=== PATIENT | female | born 1950 | race Caucasian/White ===

== ENCOUNTER 2024-05-31 20:24 | Inpatient (IN) | payer MEDICARE, OTHER, SELFPAY ==
[2024-05-31 16:48] LABS: % Basophils 0.2 % (0-2); % Eosinophils 0.1 % (0-6); % Immature Granulocytes 0.5 % (0-0.5); % Lymphocytes 2.8 % (20.5-51.1); % Neutrophils 90.4 % (42.2-75.2); Absolute Immature Granulocytes 0.1 10^3/uL (0-0.05); Absolute Lymphocytes 0.4 10^3/uL (1.2-3.4); Absolute Monocytes 0.9 10^3/uL (0.1-0.6); Absolute Neutrophils 12.9 10^3/uL (1.4-6.5); Hematocrit 44.7 % (37.0-47.0); Hemoglobin 15.7 g/dL (12.0-16.0); Mean Corp Hgb Conc. 35.1 g/dL (33.0-37.0); Mean Corpuscular Hgb 31.2 pg (27.0-31.0); Mean Corpuscular Volume 88.9 fL (81.0-99.0); Mean Platelet Volume 9.3 fL (7.4-10.4); Nucleated Red Blood Cells % 0 %; Platelet Count 352 10^3/uL (130-400); Red Blood Cell Count 5.03 10^6/uL (4.20-5.40); Red Cell Dist. Width 15.6 % (11.5-14.5); White Blood Cell Count 14.2 10^3/uL (4.8-10.8)
[2024-05-31 17:01] LABS: INR 1.03; PT 13.8 Sec (11.4-14.6)
[2024-05-31 17:05] LABS: ALT (SGPT) 14 U/L (0-35); AST (SGOT) 18 U/L (14-36); Alkaline Phosphatase 93 U/L (38-126); Blood Urea Nitrogen 69 mg/dl (7-17); Carbon Dioxide 21 mmol/L (22-30); Chloride 99 mmol/L (98-107); Glucose 113 mg/dl (70-99); Potassium 4.2 mmol/L (3.5-5.1); Sodium 130 mmol/L (135-145); Total Bilirubin 1.2 mg/dl (0.2-1.3)
[2024-05-31 17:18] LABS: NT-proBNP 851 pg/ml; Troponin I 0.027 ng/ml
--- NOTE | 2024-05-31 18:16 | ED.GENMED ---
History of Present Illness
General
Chief Complaint: Breathing Problem
Time Seen by Provider: 05/31/24 18:05
History of Present Illness
History of Present Illness:
Patient presents to the emergency department with bilateral lower extremity edema and worsening shortness of breath. She reports that this has been ongoing for weeks to months however it has been worsening. She notes that she is unable to walk now
due to the edema in her legs. Also feels that she is more short of breath while ambulating. Fevers or chills. Endorses some difficulty swallowing at times. This has been ongoing for months.
Phy Exam
Physical Exam
Physical Exam:
GENERAL APPEARANCE: NAD, well developed/ well nourished
EYES lids/conjunctiva normal
EARS/NOSE/THROAT Mucous membranes moist, uvula midline without oral pharyngeal erythema, exudate or swelling
HEAD/NECK normocephalic atraumatic, neck is supple.
RESPIRATORY respiratory effort normal, speaks in full sentences, no accessory muscle use. Lungs clear to auscultation without rhonchi, wheezes, rales
CARDIAC tachycardia, regular rhythm, pitting edema to bilateral lower extremities to her hips.
ABDOMINAL Soft, ND/NT. No pulsatile masses on exam, rebound tenderness, Garza sign or pain over Mcburney's point.
MUSCLES/EXTREMITIES No abnormal range of motion, no swelling.
SKIN Warm, pink and dry.
NEUROLOGICAL Speech is clear and appropriate. Normal level of consciousness. 5/5 strength in all extremities.
PSYCH Normal mood and affect. Judgement/competence is appropriate
Scores
Heart Failure Risk
Heart Failure Risk Score: Yes
History of Stroke or TIA: No
History of intubation for respiratory distress: No
Heart rate on ED arrival >/= 110: No
SaO2 <90% on arrival on room air: No
HR >/=110 during 3min walk test (or too ill to perform test): No
ECG has acute ischemic changes: No
Urea >/=12mmol/L (BUN 33.6mg/dL): Yes
Serum CO2>/=35mmol/L: No
Troponin I or T elevated to ND Level (0.4mg/dL): No
NT-proBNP >/=5,000ng/L (5,000pg/ml): No
HF Risk Score: 1
Admission Status: MEDIUM RISK 5.1% Consider observation or discharge to home with homecare & f/u visit to PCP/Mentally Retarded Teacher, or SNF for treatment
Course
Orders/Labs/Results
Orders:
Orders
05/31/24 16:31
EKG [Electrocardiogram (*1)] Urgent
Reason for Study: Shortness of Breath
EKG- Treatment ONCE
CR Chest - 2 Views Urgent
Comment:
Reason For Exam: SOB
05/31/24 16:38
Complete Blood Count/With Diff Urgent
Comprehensive Metabolic Panel Urgent
Pro-BNP [NT-proBNP] Urgent
Prothrombin Time Urgent
Troponin I Urgent
05/31/24 18:24
D-Dimer Urgent
05/31/24 19:03
Furosemide [Lasix] 40 mg IV NOW STA
Abnormal Lab Results
05/31/24 05/31/24
16:38 18:24
WBC 14.2 H 10^3/uL
(4.8-10.8)
MCH 31.2 H pg
(27.0-31.0)
RDW 15.6 H %
(11.5-14.5)
Abs Immat Gran (auto) 0.1 H 10^3/uL
(0-0.05)
Absolute Neuts (auto) 12.9 H 10^3/uL
(1.4-6.5)
Absolute Lymphs (auto) 0.4 L 10^3/uL
(1.2-3.4)
Absolute Monos (auto) 0.9 H 10^3/uL
(0.1-0.6)
Neutrophils % 90.4 H %
(42.2-75.2)
Lymphocytes % 2.8 L %
(20.5-51.1)
D-Dimer 2.87 H ug/mlFEU
(0.00-0.50)
Sodium 130 L mmol/L
(135-145)
Carbon Dioxide 21 L mmol/L
(22-30)
BUN 69 H mg/dl
(7-17)
Creatinine 1.8 H mg/dL
(0.6-1.0)
Glucose 113 H mg/dl
(70-99)
Total Protein 6.0 L g/dl
(6.3-8.2)
Albumin 3.0 L g/dl
(3.5-5.0)
05/31/24 16:38
05/31/24 16:38
Vital Signs
Initial and Last Documented VS:
Initial Vital Signs
Pulse Resp Pulse Ox
102 20 97
05/31/24 18:10 05/31/24 18:10 05/31/24 18:10
Last Documented Vital Signs
Pulse Resp Pulse Ox
100 27 97
05/31/24 18:30 05/31/24 18:30 05/31/24 18:15
*Critical Care Note
Total Time (30-74mins, 75-104mins- exclusive of procedures): Not Applicable
ED Attending Note
ED Attending Note
ED Attending Note:
has diffuse pitting edema of her lower extremities
CXR showing large left sided pleural effusion and small R sided effusion
suspect volume overload as the cause of her dyspnea/effusion
she is saturating well on room air , in no distress
labs showing elevation in creatinine to 1.8 , no priors on file
ddimer was elevated to 2.87 but foregoing CTA given her clinical stability, renal function and more likely alternate diagnosis
given 40mg lasix
will admit to hospitalist for further management
-
Portions of this chart may have been created with voice recognition software.� Occasional wrong word or��sound alike� substitutions may have occurred due to the inherent limitations of voice recognition software.
Discharge Plan
Departure
Referrals:
Santiago Osei MD [Family Provider] -
Interventions
Interventions:
*Risk Screen - Suicide Last Done: 05/31/24 16:30
*General Assessment Last Done: 05/31/24 16:30
*Neglect/Abuse Screening Last Done: 05/31/24 16:30
*ED COVID-19 Vaccine History Last Done: 05/31/24 16:30
ED- Cardiac Assessment Last Done: 05/31/24 17:48
ED- Pulmonary Assessment Last Done: 05/31/24 17:48
Discharge Date and Time
Print Language: LITHUANIAN
[2024-05-31 18:43] LABS: D-Dimer 2.87 ug/mlFEU (0.00-0.50)
[2024-05-31 19:00] VITALS: BP 124/90
--- NOTE | 2024-05-31 19:45 | HPS.HSE ---
Family Physician
-
Family Physician: Santiago Osei
Chief Complaint
-
Shortness of breath
History of Present Illness
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
repeated radiation in 2018/2021 now comes to the emergency department for shortness of breath.
Patient reports shortness of breath for few months now. She also reports about 3 weeks of bilateral lower extremity swelling. She reports dyspnea on exertion. Patient reports that she has had several pound weight loss over several months. She
denies any chest pain. She denies any productive cough. She denies any exertional chest pain. She denies any fevers or chills. She reports very poor appetite. Patient denies a history of smoking. She denies any calf tenderness.
In the emergency department she had a blood pressure [id number] with a pulse of 100 she is satting 97% on room air. ECG is nonischemic with sinus tachycardia and low voltages. Troponin was 0.02, BNP was 850. Chest x-ray shows a moderate right-sided
pleural effusion and possibly a left large pleural effusion but appears to be obscured by augmented breast tissue. D-dimer is elevated at 2.8.
She has a white count of 14, hemoglobin and platelets were normal. Electrolytes notable for a sodium of 130 but otherwise unremarkable. BUN and creatinine elevated at 69 and 1.8 respectively without a prior for comparison.
Medical History
Past Medical History
Past Medical History: Reports Cancer (Left breast cancer status post lumpectomy remotely, recurrence in lymph node status post lymph node dissection and XRT in 2019.) and HTN
Past Surgical History: Reports Other (Lumpectomy, lymph node dissection)
Social History
Tobacco: Non-smoker
Alcohol: Occasional
Drug: None
Family History
Family History: Not pertinent
Allergies / Home Medications
Allergies reflects when Allergies were last updated in [facility].
Home Medications with original date entered in [facility]
Allergy/Medication List:
Allergies
Allergy/AdvReac Type Severity Reaction Status Date / Time
blue dye Allergy Hives Verified 05/31/24 16:28
Penicillins Allergy Unknown Verified 05/31/24 16:28
Home Medications
acetaminophen 325 mg tablet (Tylenol) 650 mg PO Q6HPRN PRN mild pain 05/31/24
calcium carbonate 500 mg PO DAILY 05/31/24
herbal drugs 1 tab PO DAILYPRN PRN constipation 05/31/24
lisinopril 20 mg tablet 20 mg PO DAILY 05/31/24
vitamin A-vitamin C-vit E-min tablet 1 tab PO DAILY 05/31/24
Review of Systems
-
History Source: Patient
Constitutional: Reports Weight Loss and Fatigue
EENT: Reports No Symptoms
Respiratory: Reports Trouble Breathing
Cardiac: Reports No Symptoms
Abdomen/GI: Reports No Symptoms
: Reports No Symptoms
Musculoskeletal: Reports Edema
Skin: Reports No Symptoms
Neurological: Reports No Symptoms
Endocrine: Reports No Symptoms
Hematologic/Lymphatic: Reports No Symptoms
Psych: Reports No Symptoms
Physical Exam
Vital Signs
Vital Signs
Pulse Resp Pulse Ox
100 27 97
05/31/24 18:30 05/31/24 18:30 05/31/24 18:15
Physical Exam
General: Well Developed, Well Nourished, No Apparent Distress and Comfortable
HEENT: NormoCephalic, Anicteric, Moist mucous membranes and Atraumatic
Respiratory: Crackles
Cardiac: S1/S2, Regular Rhythm and Peripheral Edema; No Murmur, Rub, Gallop, Calf Tenderness or JVD
Breast: Other (breast augmentation, )
GI: Soft, Non Tender, Normal Bowel Sounds and Distended
Rectal: Deferred by Provider
Genito-urinary: Deferred by me
Musculoskeletal: No Cyanosis, Edema, Left Lower Extremity and Edema, Right Lower Extremity
Skin: Other (right neck skin calcifications)
Neuro: AO x 3 and Nonfocal/grossly intact
Hematologic/Lymphatic: No Lymphadenopathy
Psych: Calm
Laboratory Results
-
05/31/24 16:38
05/31/24 16:38
Laboratory Results
PT 13.8 Sec (11.4-14.6) 05/31/24 16:38
INR 1.03 05/31/24 16:38
Total Bilirubin 1.2 mg/dl (0.2-1.3) 05/31/24 16:38
AST 18 U/L (14-36) 05/31/24 16:38
ALT 14 U/L (0-35) 05/31/24 16:38
Alkaline Phosphatase 93 U/L (38-126) 05/31/24 16:38
Troponin I 0.027 ng/ml 05/31/24 16:38
Data Reviewed
-
Diagnostic Radiology: Image Personally Visualized and interpreted
Medical Tests (Nuc Med, Echo, EKG etc): Image Personally Visualized and interpreted
Lab Data: Labs Reviewed by me
Old Records: Reviewed
Impression/Plan
-
IMPRESSION:
73 y.o female with h/o breast cancer coming in with subacute and chronic symptoms including weightloss for several months, SOB and dyspnea on exertion for several weeks and new [place] LE edema over the last 3 weeks. No chest pain. Xray shows pleural
effusions of moderate to possibly large size without focal infiltrates. D-dimer is elevated. Trop is negative. ECG with low voltages. No prior h/o CAD, CHF or chemotherapy. She has renal failure with creatinine of 1.8 and BUN of 69. Unclear
duration as no prior labs available. No h/o liver disease and LFTs normal here. She is total body overloaded with source possibly from cardiac etiology vs renal dysfunction. Cannot rule out pericardial effusion as possible etiology at this time
PLAN:
1. SOB and Volume overload - Total body volume overload but dry MM. Diff dgx includes CHF with cardiorenal, pericardial effusion, malignant vs transudative pleural effusion, nephrotic syndrome (less likely in setting of normotension)
- admit to telemetry
- obtain CT a/p without contrast
- obtain u/s of le bilaterally
- no cp, given findings c/w CHF and effusions and poor kidneys, will hold off CT PE despite elevated D-dimer
- attempt gentle diuresis for now, lasix 40 given in ED, she is not on oxygen, will hold off further lasix until viewing CT scan, echo in am
- check orthostatics
- daily weights and i/os
- cardiology consult
2. Pleural effusions - Suspect CHF vs malignant. No signs of active infection. The weight loss, the h/o malignancy raises concern for recurrence
- CT a/p without contrast, if large volume, will consult IR for diagnostic and therapeutic thoracentesis
3. MIKEY - presumed MIKEY, ? cardiorenal vs nephrotic syndrome
- obtain u/a urine lytes and creatinine
- hold lisinopril for now
- attempt diuresis as above
- nephrology consultation
4. Weightloss
- malignancy suspected, depression suspected per history from daughter
- speech/swallow eval
5. Skin findings - hard skin nodules on the neck bilaterally. Non tender. No discharges. Has been present for a long time per patient
- consider outpatient skin biopsy
DVT PPX - heparin sq
Code status - Full code
[2024-05-31 20:00] VITALS: BP 118/90
[2024-05-31] MEDS: LASIX 40 MG IV (20:07)
[2024-05-31 20:36] VITALS: BMI 24.2
[2024-05-31 21:00] VITALS: BP 112/82
[2024-05-31 22:00] VITALS: BP 127/87
--- NOTE | 2024-05-31 22:00 | EDRN ---
Family is asking about update on CT scan results, did speak with the hospitalist since results are back, they will try to get in to speak with family when they can, family is understanding and said they can update them tomorrow as well.
[2024-05-31 22:55] LABS: Urine Albumin 2+ (Neg - Trace); Urine Bilirubin Negative (Negative); Urine Character Slightly Cloudy (Clear); Urine Color Yellow; Urine Glucose Negative (Negative); Urine Ketone Negative (Negative); Urine Leukocyte 3+ (Negative); Urine Nitrite Negative (Negative); Urine Occult Blood 2+ (Negative); Urine Specific Gravity 1.025 (<1.030); Urine Urobilinogen Negative (Neg - 1+)
[2024-05-31 23:00] VITALS: BP 111/82
[2024-05-31 23:04] LABS: Urine Bacteria Few (Negative); Urine White Cell 26-30 /HPF (0-5)
--- NOTE | 2024-05-31 23:07 | EDRN ---
Lights turned down for patient, she is resting at this time, call geovani in reach, daughter went home for the evening
Margarita (daughter) [phone]
[2024-05-31 23:30] LABS: Protein/creatinine Ratio 0.1; Urine Protein 12 mg/dl; Urine Sodium 7 mmol/L (30-90)
[2024-06-01] VITALS (12 sets, daily range): BP systolic 88–126; BP diastolic 60–87; BMI 22.8
--- NOTE | 2024-06-01 00:13 | EDRN ---
Patient complaining of back pain, will medicate per MAR, patients bed is in progress to be cleaned
[2024-06-01] MEDS: TYLENOL 650 MG PO (00:17)
--- NOTE | 2024-06-01 01:00 | PTCARENOTE ---
Received patient from ED via stretcher. Patient pulled over from stretcher to bed with assistance. Oriented patient to room and placed call olivo within reach.
[2024-06-01] MEDS: HEPARIN 5000 UNITS SC ×3 (01:26→16:55)
[2024-06-01] MEDS: ULTRAM 25 MG PO (02:32)
[2024-06-01] MEDS: ZOFRAN 4 MG IV ×2 (08:01→18:06)
[2024-06-01] MEDS: LASIX 40 MG IV (08:02)
--- NOTE | 2024-06-01 08:05 | CON.CAR ---
Addendum entered and electronically signed by Tony Francois MD 06/01/24 10:06:
I saw and examined the patient.
The MILK DELIVERY DRIVER's note was reviewed and I agree with the note.
73-year-old with a pretty history of breast cancer/lumpectomy/radiation therapy hypertension who has had increased shortness of breath for months and also increased lower extremity edema. Patient with extensive bilateral lower extremity edema up
through the thighs and buttocks. CT with bilateral pleural effusions with large left pleural effusion and there is also evidence of ascites. Labs notable for creatinine 1.8. proBNP 851.
Extensive edema, pleural effusions and ascites may be multifactorial. Underlying malignancy is a concern. Based on the above would suggest the following
-Thoracentesis-diagnostic and therapeutic. To be performed toda. Will await results.
-Echocardiogram
-Cautious use of diuretics with close monitoring of renal function
-Renal insufficiency. Evaluation in progress. Monitor with diuretic
-Hyponatremia. Sodium 130-132. Monitor with diuretic
-Elevated D-dimer. CT not performed due to elevated creatinine. Await lower extremity ultrasound
Original Note:
Consultation
Consultation Request
Date/Time Consultation Requested: 06/01/2435
Date/Time Consultation Performed: 06/01/24 0805
Requesting Provider: Dr. Miller
Performing Provider: Carlene KAISER for Dr. Francois
Reason for Consultation: pleural effusion, concern for CHF
Medical History
-
Chief Complaint: SOB, LE edema
History of Present Illness:
73 y/o female with hx breast cancer (s/p left breast lumpectomy and radiation, then later noted in lymph nodes s/p intervention- oncologist Dr. Britni Guerrier, [place]) and hypertension who is here for evaluation of BLE edema x 3 weeks. It became
difficult to ambulate with this. She has also had SOB for months now, which has been progressive. She has not gone to a medical provider for this before now. She thinks she has lost weight and has a poor appetite. No fever or chills. No orthopnea or
PND. She is in no distress at the time of my assessment, but does have increased WOB. She is seen on imaging to have a large left pleural effusion and small-moderate right pleural effusion. She was given of dose of IV diuretic. Renal dysfunction is
noted, and AM labs are pending. She is scheduled for a lung tap. D-dimer is elevated, but no plan for CTPE right now with renal dysfunction per primary team- LE u/s is pending.
Past Medical History
Past Medical History: Cancer and HTN
Social History
Tobacco: Non-Smoker
Alcohol: Former (used to drink ETOH, now doesn't)
Family History
Family History: Other ('heart issues' on mom's side- details unclear)
Allergies / Home Medications
Allergy/AdvReac Type Severity Reaction Status Date / Time
blue dye Allergy Hives Verified 05/31/24 16:28
Penicillins Allergy Unknown Verified 05/31/24 16:28
�Medication �Instructions �Recorded �Confirmed �Type
acetaminophen 325 mg tablet 650 mg PO Q6HPRN PRN mild pain 05/31/24 05/31/24 History
(Tylenol)
calcium carbonate 500 mg PO DAILY Supplement 05/31/24 05/31/24 History
herbal drugs 1 tab PO DAILYPRN PRN constipation 05/31/24 05/31/24 History
lisinopril 20 mg tablet 20 mg PO DAILY Blood Pressure 05/31/24 05/31/24 History
vitamin A-vitamin C-vit E-min 1 tab PO DAILY Supplement 05/31/24 05/31/24 History
tablet
Review of Systems
-
History Source: Patient
All other systems: Negative unless noted
Constitutional: Weight Loss
Respiratory: Trouble Breathing
Musculoskeletal: Edema
Physical Exam
Vital Signs
Temp Pulse Resp BP Pulse Ox
97.7 F 93 18 123/87 97
06/01/24 08:03 06/01/24 08:03 06/01/24 08:03 06/01/24 08:03 06/01/24 08:03
Lab Results
05/31/24 16:38
Troponin I 0.027 ng/ml 05/31/24 16:38
Ydx-R-Lbcptbljgtn Pept 851 pg/ml 05/31/24 16:38
Physical Exam
General: Well Developed, Well Nourished and No Apparent Distress
HEENT: Normocephalic and Anicteric
Respiratory: Other (diminished to bases, faint wheezes scattered t/o, mildly increased WOB)
Cardiac: Regular Rhythm and Peripheral Edema (+1-2 BLE edema)
Musculoskeletal: Edema
Skin: Warm and Dry
Neuro: AO x 3
Psych: Calm
Impression / Plan
-
SOB:
-pleural effusions noted on imaging as detailed below (L > R)
-plan is for diagnostic/therapeutic tap today
-obtain echo
-LE edema noted, anasarca noted on CT scan as below
-we can continue and monitor response to IV diuresis- AM labs pending. This requires intensive monitoring.
-D-dimer is elevated and notes reviewed and CT PE is deferred for now with renal dysfunction- LE u/s is pending. W/u per primary on this.
Hx Breast cancer:
-Chest imaging raises possibility of metastasis- work-up/management per primary team
Abnormal creatinine, hyponatremia:
-unknown baseline
-monitor response to diuresis. AM labs are pending.
-nephrology is consulted
HTN:
-stable
-ACEI held for above
Data:
Chest CT scan without contrast: large left pleural effusion with associated collapse of the left lower lobe and partial collapse of the left upper lobe. There is a small/moderate right-sided pleural effusion with adjacent compressive atelectasis.
Scattered small sclerotic foci involving the thoracic spine and sternum, nonspecific although the setting of malignancy metastasis are possible. Diffuse anasarca. Fractures of the anterior left second, third and fourth ribs which appear subacute.
Data Reviewed
-
EKG: Tracing Personally Visualized and interpreted (ST 104 BPM, low voltage QRS)
Radiology: Report Reviewed by me (CXR: Large left pleural effusion. Small right pleural effusion.)
CT Scan: Report Reviewed by me (As noted)
Medical Tests (Nuc Med, Echo etc): Other (ordered and pending)
Labs: Labs Reviewed by me
[2024-06-01 08:10] LABS: INR 1.01; PT 13.6 Sec (11.4-14.6)
[2024-06-01 08:31] LABS: HDL Cholesterol 72 mg/dl; LDL Cholesterol, Calculated 157 mg/dl; Total Cholesterol 263 mg/dl (50-199); Total Protein 6.1 g/dl (6.3-8.2); Triglyceride 173 mg/dl (10-149); Very Low Density Lipoprotein 34 mg/dl (0-30)
[2024-06-01 09:02] LABS: TSH Reflex To Free T4 2.94 uIU/ml (0.47-4.68)
[2024-06-01 09:19] LABS: Blood Urea Nitrogen 74 mg/dl (7-17); Carbon Dioxide 20 mmol/L (22-30); Chloride 101 mmol/L (98-107); Estimated Creatinine Clearance 23 ml/min; Glucose 100 mg/dl (70-99); LDH 198 U/L (120-246); Magnesium 2.4 mg/dl (1.6-2.3); Potassium 4.3 mmol/L (3.5-5.1); Sodium 132 mmol/L (135-145); eGFR 31.27
--- NOTE | 2024-06-01 11:11 | W.PN.UPDATE ---
Update Note
Progress Note Update
CXR post left thoracentesis shows small ptx. Asymptomatic, states breathing improved. 96% on RA. Likely ex vacuo ptx, will obtain repeat CXR in 2 hrs to assess stability. 1450 cc evacuated.
--- NOTE | 2024-06-01 11:25 | PTCARENOTE ---
This AM pt N/V PRN zofran administered with good response. Report received from [facility], Repeat CXR 1pm- attending notified. Pt going from IR to Echo.
[2024-06-01 11:26] LABS: Body Fluid Mononuclear 86.5 %; Body Fluid Polymorphonuclear 13.5 %; Body Fluid WBC 59 /CUMM
[2024-06-01 11:27] LABS: Body Fluid Second Tech AMA
[2024-06-01 11:30] LABS: Body Fluid Glucose 101 mg/dl; Body Fluid LDH 132 U/L; Body Fluid Protein 3.7 g/dl
--- NOTE | 2024-06-01 12:25 | PTCARENOTE ---
pt hypotensive upon return to her room from [facility] and Echo BP 97/52 although MAP 80 respiration rate 28, PO 96% RA pt states she is SOB although she also adds it is improved. Attending notified
--- NOTE | 2024-06-01 13:38 | W.PN.HOSP.TC ---
Today's Communication/Plan
-
Pending echo
Assessment / Plan
Assessment / Plan
Impression:
Patient is 70 years old with history of breast cancer status post lumpectomy and radiation came to the ER with shortness of breath, bilateral lower extremity edema for last 3 weeks found to have large pleural effusion status post thoracentesis
cardiology consulted, echocardiogram pending.
Assessment/plan
Acute CHF Exacerbation:
Unspecific type, pending echo
Patient presented with shortness of breath and lower extremity
BNP level is elevated at 851
Troponin level is 0.027
Was given IV Lasix 40 mg daily, caution with hypotension
Daily weight.
Strict I's and O's.
Consulted cardiology.
Continue surveillance system monitor
Echo pending.
Bilateral lower extremity ultrasound pending.
Bilateral pleural effusion
CT chest:
There is a large left pleural effusion with associated collapse of the left lower lobe and partial collapse of the left upper lobe. There is a small/moderate right-sided pleural effusion with adjacent compressive atelectasis.
Scattered small sclerotic foci involving the thoracic spine and sternum, nonspecific although the setting of malignancy metastasis are possible.
Diffuse anasarca.
Fractures of the anterior left second, third and fourth ribs which appear subacute
Status post left-sided thoracentesis with removal of 1400 cc.
Fluid studies pending--- history of breast cancer rule out malignant pleural effusion
Small left pneumothorax, follow-up chest x-ray
Postprocedure hypotension
Continue to monitor
Consider midodrine-cannot give IV fluid
Purple discoloration of bilateral
Patient stated that this been there for last 2 days.
Palpable pulses bilaterally.
Continue to monitor
Acute renal failure
Creatinine slightly improved
hold lisinopril for now
Caution with diuresing
consult nephrology
Weight loss
- malignancy suspected, depression suspected per history from daughter
- speech/swallow eval
Skin findings - hard skin nodules on the neck bilaterally. Non tender. No discharges. Has been present for a long time per patient
- consider outpatient skin biopsy
CODE STATUS: Full code
DVT prophylaxis: Heparin
Diet: Cardiac diet
Total time spent on today's encounter was 65 minutes which included time spent in counseling the patient/family regarding diagnosis and treatment plan as listed above, goals of care, and symptom management. Case was discussed with nursing staff,
specialists, and care coordinators/case management. All labs and imaging personally reviewed by me. Remainder the time spent in detailed review of previous records, lab data, imaging, and other medical provider documentation.
Anticipated Discharge: > 48 hours
Subjective/Interval History
-
Date of Service: June 01, 2024
Patient seen and examined at bedside, patient came back from left-sided thoracentesis with removal of 1400 cc.
Noted to have small pneumothorax, repeat chest x-ray pending.
Overall breathing improved but patient feeling tired and noted to have purplish discoloration in bilateral hands, blood pressure was low.
Objective Data
-
Labs:
Laboratory Results
06/01/24 06/01/24
06:56 08:48
PT 13.6
INR 1.01
Sodium Cancelled 132 L
Potassium Cancelled 4.3
Chloride Cancelled 101
Carbon Dioxide Cancelled 20 L
BUN Cancelled 74 H
Creatinine Cancelled 1.7 H
Glucose Cancelled 100 H
Calcium Cancelled 9.0
Vital Signs:
Vital Signs
Temp Pulse Resp BP Pulse Ox
97.6 F 103 18 97/71 94
06/01/24 11:56 06/01/24 11:56 06/01/24 11:56 06/01/24 11:56 06/01/24 11:56
I&O
05/31/24 06/01/24 06/02/24
06:59 06:59 06:59
Output Total 50 / 50
Balance -50 / -50
Physical Exam
-
General: Respiratory Distress and Appears in Distress
HEENT: Normocephalic, Atraumatic, Moist Mucous Membranes, No Ptosis, PERRLA and Nose Appears Normal
Respiratory: Rales, Rhonchi, Crackles and Accessory Resp Muscle Use
Cardiac: Regular Rhythm, S1/S2 and Tachycardic
Breast: Deferred by me
GI: Soft, Nontender, Nondistended and Normal Bowel Sounds
Genito-urinary: No Costovertebral Tender
Musculoskeletal: Edema, Right Lower Extrem and Edema, Left Lower Extrem
Skin: Other (Bilateral hands purplish discoloration)
Neuro: Awake, Alert, Oriented, AO x 3 and No Motor Deficits
Psych: Calm
Data Reviewed
-
Diagnostic Radiology: Image personally visualized and interpreted and Report Reviewed by me
CT Scan: Image personally visualized and interpreted and Report Reviewed by me
Ultrasound: Image personally visualized and interpreted and Report Reviewed by me
MRI: Image personally visualized and interpreted and Report Reviewed by me
Medical Tests (Nuc Med, Echo etc): Image personally visualized and interpreted and Report Reviewed by me
Labs: Labs Reviewed by me
Old Records: Reviewed
--- NOTE | 2024-06-01 13:45 | CM ---
Met with patient to obtain information for assessment. Patient stated that she is living alone in a bi-level home with one step to enter through the garage. She described herself as in need of assistance with bathing, dressing, personal care and all
ADLs. Patient stated that she has a very good friend who lives two minutes away and is available to support her in any way. She does not drive however, her neighbor and neighbor's daughter have committed to taking her to all of her appointments. She
grocery shops on line using [employer]. She uses a walker for long distances and a cane for shorter household distances.
Patient stated that she has never been to a SNF nor has she had VN services in the past.
Patient's PCP is, Santiago Osei.
Patient stated that she will remain agreeable to what is indicted for her prior to discharge, including SNF. She stated that it has been difficult for her to ambulate due to her edema.
Plan: Case management will continue to follow and assist with discharge planning. Home with services vrs SNF.
--- NOTE | 2024-06-01 13:52 | W.CON.NEPH ---
Consultation
-
Date/Time Consultation Requested: 06/01/24 0036
Date/Time Consultation Performed: 06/01/24 1415
Requesting Provider: Ruth Miller MD
Performing Provider: Melissa Narvaez
Reason for Consultation: MIKEY
Medical History
-
Chief Complaint: sob
History of Present Illness:
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
dissection and repeated radiation in now comes to the emergency department for shortness of breath.
Reportedly symptoms present for few months and LE edema for 2-3weeks, CASTRO for several months. She has poor appetite and lost several pounds of wt in several months. In ER Chest x-ray shows a moderate right-sided pleural effusion and possibly a left
large pleural effusion, CT chest with out contrast shows large left pleural effusion with collapse of LLL, small to mod right pleural effusion with atelectasis and Diffuse anasarca.. WBC 14.2 D-dimer is elevated at 2.8.. BNP 850. Cr noted at 1.8,
BUN 69, sodium 130 with no baseline hence nephrology consulted to eval MIKEY. She did not have any labs in recent years. She received lasix for CHF and cr today at 1.7, sodium 132, BUN 74.
She denies any cough. She denies any chest pain. She denies any fevers or chills. Feels very tired and can not talk for longtime with SOB. SHe underwent left Thoracentesis of 1.4lit today, has mild penumothx following. Denies any dysuria. C/o
abdominal distension. No NSAIDs use. She has occasional dizziness but did not check BPs at home.
Past Medical History
HTN, Left breast cancer status post lumpectomy remotely, recurrence in lymph node status post lymph node dissection and XRT in 2019.
Past Surgical History: Other (Lumpectomy, lymph node dissection)
Social History
Tobacco: Non-Smoker
Alcohol: Occasional
Drug: None
Family History
Family History: Not Pertinent
Allergies / Home Medications
Allergy/AdvReac Type Severity Reaction Status Date / Time
blue dye Allergy Hives Verified 05/31/24 16:28
Penicillins Allergy Unknown Verified 05/31/24 16:28
�Medication �Instructions �Recorded �Confirmed �Type
acetaminophen 325 mg tablet 650 mg PO Q6HPRN PRN mild pain 05/31/24 05/31/24 History
(Tylenol)
calcium carbonate 500 mg PO DAILY Supplement 05/31/24 05/31/24 History
herbal drugs 1 tab PO DAILYPRN PRN constipation 05/31/24 05/31/24 History
lisinopril 20 mg tablet 20 mg PO DAILY Blood Pressure 05/31/24 05/31/24 History
vitamin A-vitamin C-vit E-min 1 tab PO DAILY Supplement 05/31/24 05/31/24 History
tablet
Physical Exam
Vital Signs
Vital Signs
Temp Pulse Resp BP Pulse Ox
97.6 F 100 26 101/61 94
06/01/24 11:56 06/01/24 13:47 06/01/24 13:47 06/01/24 13:47 06/01/24 13:47
Lab Results
WBC 14.2 10^3/uL (4.8-10.8) H 05/31/24 16:38
RBC 5.03 10^6/uL (4.20-5.40) 05/31/24 16:38
Hgb 15.7 g/dL (12.0-16.0) 05/31/24 16:38
Hct 44.7 % (37.0-47.0) 05/31/24 16:38
Plt Count 352 10^3/uL (130-400) 05/31/24 16:38
Sodium 132 mmol/L (135-145) L 06/01/24 08:48
Potassium 4.3 mmol/L (3.5-5.1) 06/01/24 08:48
Chloride 101 mmol/L (98-107) 06/01/24 08:48
Carbon Dioxide 20 mmol/L (22-30) L 06/01/24 08:48
BUN 74 mg/dl (7-17) H 06/01/24 08:48
Creatinine 1.7 mg/dL (0.6-1.0) H 06/01/24 08:48
eGFR 31.27 06/01/24 08:48
Glucose 100 mg/dl (70-99) H 06/01/24 08:48
Calcium 9.0 mg/dl (8.4-10.2) 06/01/24 08:48
Ley-I-Zfpsnfflldp Pept 851 pg/ml 05/31/24 16:38
Albumin 3.0 g/dl (3.5-5.0) L 05/31/24 16:38
Physical Exam
General: Awake, Alert, Oriented, AOx3 and No Distress
HEENT: EOMI, Anicteric, Conjunctivae Clear and Neck Supple
Respiratory: Normal Excursion, Nonlabored Respirations and Other (decreased BS)
Cardiac: S1/S2 and Regular Rate/Rhythm
Breast: Deferred by me
Abdomen: Soft, Nontender and Other (mild distended)
Musculoskeletal: No Cyanosis and Edema (2+)
Skin: No Rash and Warm
Neuro: Nonfocal/Grossly Intact
Psych: Appropriate
Assessment/Plan
-
IMP:
SOB and Volume overload
BIlat pleural effusion left >right
s/p Thoracentesis 1.45lit and mild pneumothx post
MIKEY
Weightloss
elevated LFTs
Skin findings - hard skin nodules on the neck bilaterally.
Plan:
A/w SOB, noted anasarca and bilat pleural effusion
MIKEY-no baseline cr available
UA ?UTI sample, U na low 7-suggest cardiorenal/prerenal
monitor UOP , ?oliguric
U PCR only 100mg/gm of cr unlikely nephrotic , check renal US
pending echo
cont diuresis, check bladder scan
BP soft end with out anti HTN meds
mild hyponatremia likely from hypervolemia-maintain FR
monitor met acidosis
labs in am
d/w pt and primary
--- NOTE | 2024-06-01 18:16 | PTCARENOTE ---
Reviewed, along with BP and updates for family with attending.low urine output, bladder scan PVR 26
[2024-06-02] VITALS (7 sets, daily range): BP systolic 95–130; BP diastolic 58–72; PULSE 105–109; BMI 22.8
[2024-06-02] MEDS: HEPARIN 5000 UNITS SC ×2 (01:06→10:15)
[2024-06-02] MEDS: MELATONIN 5 MG PO (01:07)
[2024-06-02 09:05] LABS: Blood Urea Nitrogen 79 mg/dl (7-17); Carbon Dioxide 18 mmol/L (22-30); Chloride 101 mmol/L (98-107); Estimated Creatinine Clearance 18 ml/min; Glucose 117 mg/dl (70-99); Potassium 4.8 mmol/L (3.5-5.1); Sodium 131 mmol/L (135-145); eGFR 22.95
--- NOTE | 2024-06-02 09:15 | PN.CDI ---
CDI
- -
CDI:
Physician Documentation Request
Admit Date: 05/31/24 20:24
Dear Doctor Dahiana,
Patient admitted with acute CHF exacerbation.
06/01 Nutrition note, 'Upper body remains very thin in appearance with severe loss tricep subcutaneous fat and severe loss clavicle, pectoralis muscle. In combination with prolonged poor intake prior to hospital admit <75% x 1 month, pt meets
criteria for severe protein calorie malnutrition of chronic illness.'
Please provide in your note the diagnosis associated with the nutrition findings and your assessment:
Severe protein calorie malnutrition of chronic illness
Other (please specify)
[place] Criteria ([facility] Hospitalist 2017)
2 or more criteria must be present for either
non severe or severe malnutrition
Note that the criteria differs related to the
presence of an acute or chronic illness
Chronic Illness
Energy Intake Non Severe: <75% for >1 month
Severe: <75% for >1 month
Weight Loss Non Severe: 5% over 1 month
7.5% over 3 months
10% over 6 months
20% over 1 year
Severe: >5% over 1 month
>7.5% over 3 months
>10% over 6 months
>20% over 1 year
Body Fat Non Severe: Mild Loss
Severe: Severe Loss
Muscle Mass Non Severe: Mild Loss
Severe: Severe Loss
Fluid Accumulation Non Severe: Mild Accumulation
Severe: Moderate to severe
accumulation
Reduced Is/It Project Manager Strength Non Severe: N/A
Severe: Measurably reduced
Use of terms such as suspected, likely, concern for, or probable (associated with a specific diagnosis that is being evaluated, monitored, or treated as if it exists) are acceptable and can be coded in the inpatient setting, when documented at the
time of discharge.
Thank you,
Aubree LOPEZ,RN,CCDS
CDI Specialist
Available via tiger text
Please use your independent medical judgment in providing your response.
--- NOTE | 2024-06-02 09:15 | W.PN.CD ---
Today's Communication / Plan
-
IV diuresis
Consider nephrology consult given worsening Cr and anasarca
Impression / Plan
-
LE edema anasarca
- Echo below but normal EF
- with worsening Cr would consider nephro consult
- Cont IV lasix
SOB s/p throacentesis:
-pleural effusions noted on imaging as detailed below (L > R) s/p thora 1.5 L removed
- has not improved SOB at this point
Hx Breast cancer:
-Chest imaging raises possibility of metastasis- work-up/management per primary team
Abnormal creatinine, hyponatremia:
-unknown baseline
-monitor response to diuresis. AM labs are pending.
-nephrology is consulted
HTN:
-stable
-ACEI held for above
Data:
Chest CT scan without contrast: large left pleural effusion with associated collapse of the left lower lobe and partial collapse of the left upper lobe. There is a small/moderate right-sided pleural effusion with adjacent compressive atelectasis.
Scattered small sclerotic foci involving the thoracic spine and sternum, nonspecific although the setting of malignancy metastasis are possible. Diffuse anasarca. Fractures of the anterior left second, third and fourth ribs which appear subacute.
Subjective: JAVY patient remains SOB
Echo June 01 2024: CONCLUSIONS
Very limited study.
Left ventricular ejection fraction is 60-65%, by visual assessment.
Normal right ventricular size and function.
Small to moderate anterior pericardial effusion without evidence of hemodynamic
compromise.
No prior study available for comparison.
Physical Exam
Vital Signs/Labs
Vital Signs
Temp Pulse Resp BP Pulse Ox
98.0 F 112 18 108/67 96
06/02/24 03:00 06/02/24 03:00 06/02/24 03:00 06/02/24 03:00 06/02/24 03:00
06/01/24 06/02/24 06/03/24
06:59 06:59 06:59
Actual Weight 124 lb 8 oz 124 lb 9 oz
06/02/24 08:05
PT 13.6 Sec (11.4-14.6) 06/01/24 06:56
INR 1.01 06/01/24 06:56
Magnesium 2.4 mg/dl (1.6-2.3) H 06/01/24 08:48
Triglycerides 173 mg/dl (10-149) H 06/01/24 06:56
LDL Cholesterol, Calc 157 mg/dl 06/01/24 06:56
VLDL Cholesterol, Calc 34 mg/dl (0-30) H 06/01/24 06:56
HDL Cholesterol 72 mg/dl 06/01/24 06:56
05/31/24
16:38
Wmn-Q-Yrahjjcxcjy Pept 851
LAB Results
05/31/24
16:38
Troponin I 0.027
Physical Exam
Constitutional: No acute distress
EENT: Anicteric
Cardiovascular: Rhythm & rate is regular and Pedal edema present
Respiratory: Respiratory effort normal and Other (decreased at b/l bases )
GI: Soft
Neuro/Psych: AO x 3
Data Reviewed
-
Date of Service: June 02, 2024
EKG: Tracing Personally Visualized and interpreted (sr)
Echo: Report Reviewed by me
Labs: Labs Reviewed by me
[2024-06-02 09:20] LABS: Hematocrit 44.5 % (37.0-47.0); Mean Corpuscular Hgb 31.6 pg (27.0-31.0); Mean Corpuscular Volume 87.8 fL (81.0-99.0); Mean Platelet Volume 11.1 fL (7.4-10.4); Platelet Count 229 10^3/uL (130-400); Red Blood Cell Count 5.07 10^6/uL (4.20-5.40); Red Cell Dist. Width 16.1 % (11.5-14.5); White Blood Cell Count 11.1 10^3/uL (4.8-10.8)
--- NOTE | 2024-06-02 09:27 | PN.CDI ---
CDI
- -
CDI:
Physician Documentation Request
Admit Date: 05/31/24 20:24
Dear Doctor Dahiana,
Patient admitted with acute CHF exacerbation.
Na levels documented below:
Laboratory Tests
05/31/24 06/01/24 06/02/24
16:38 08:48 08:05
Sodium 130 L 132 L 131 L
Based on the above, please clarify in the progress notes, the appropriate diagnosis, if significant, that supports the above abnormalities and additional evaluation, monitoring and/or treatment rendered:
Hyponatremia
Insignificant abnormal lab findings
Other
Use of terms such as suspected, likely, concern for, or probable (associated with a specific diagnosis that is being evaluated, monitored, or treated as if it exists) are acceptable and can be coded in the inpatient setting, when documented at the
time of discharge.
Thank you,
Aubree LOPEZ,RN,CCDS
CDI Specialist
Available via [place] text
Please use your independent medical judgment in providing your response.
[2024-06-02] MEDS: FLUSH (NSS) 1 FLUSH IV ×6 (10:16→16:27)
[2024-06-02] MEDS: LASIX 40 MG IV (10:16)
--- NOTE | 2024-06-02 10:29 | W.PN.NEPH.PH ---
Today's Communication / Plan
-
see plan
Assessment/Plan
-
IMP:
SOB and Volume overload
BIlat pleural effusion left >right
s/p Thoracentesis 1.45lit and mild pneumothx post
MIKEY
Weightloss
elevated LFTs
Skin findings - hard skin nodules on the neck bilaterally.
Scattered small sclerotic foci involving the thoracic spine and sternum, nonspecific although the setting of malignancy metastasis are possible on CT.
Plan:
A/w SOB, noted anasarca and bilat pleural effusion
MIKEY-no baseline cr available , cr cont to increase to 2.2
incontinent of urine and bladder scan 26cc, low threshold for wood
UA -UTI sample, U na low 7-suggest cardiorenal/prerenal
U PCR only 100mg/gm of cr unlikely nephrotic , await renal US
echo normal EF but small to mod pericardial effusion
hold diuretic since cr increasing
BP soft end with out meds
mild hyponatremia likely from hypervolemia-maintain FR
monitor met acidosis, avoiding bicarb to decrease salt load
CXR noted left penumothx post procedure 06/01
suspect bone mets-Onc consulted, pleural fluid cytology pending
labs in am
d/w pt , cards , nursing and primary
high risk of further MIKEY
1430:
Renal US shows possible hydro, will check CT abd and consult
small bilat kidneys too may suggest CKD underlying
-
-
Date of Service: June 02, 2024
CC / HPI / ROS
-
Chief Complaint:
MIKEY
History of Present Illness:
cr up at 2.2, na low at 131
UOP not recorded-incontinent
BP soft
WBC decreasing to 11k
Review of Systems:
still sob, FTT
poor po intake
no pain
nodular rash on ant chest
Labs
-
Labs:
WBC 11.1 10^3/uL (4.8-10.8) H 06/02/24 08:05
RBC 5.07 10^6/uL (4.20-5.40) 06/02/24 08:05
Hgb 16.0 g/dL (12.0-16.0) 06/02/24 08:05
Hct 44.5 % (37.0-47.0) 06/02/24 08:05
Plt Count 229 10^3/uL (130-400) D 06/02/24 08:05
Sodium 131 mmol/L (135-145) L 06/02/24 08:05
Potassium 4.8 mmol/L (3.5-5.1) 06/02/24 08:05
Chloride 101 mmol/L (98-107) 06/02/24 08:05
Carbon Dioxide 18 mmol/L (22-30) L 06/02/24 08:05
BUN 79 mg/dl (7-17) H 06/02/24 08:05
Creatinine 2.2 mg/dL (0.6-1.0) H 06/02/24 08:05
eGFR 22.95 06/02/24 08:05
Glucose 117 mg/dl (70-99) H 06/02/24 08:05
Calcium 9.0 mg/dl (8.4-10.2) 06/02/24 08:05
Qef-Q-Tscaryfipzf Pept 851 pg/ml 05/31/24 16:38
Albumin 3.0 g/dl (3.5-5.0) L 05/31/24 16:38
Physical Exam
-
Vital Signs:
Vital Signs
Temp Pulse Resp BP Pulse Ox
97.3 F 100 18 106/67 96
06/02/24 11:05 06/02/24 11:05 06/02/24 11:05 06/02/24 11:06/02/24 12:04
Cardiovascular:: Regular rate and rhythm
Respiratory:: Bilateral: Coarse
Lung Excursion:: Abnormal
Abdomen:: Nontender and Soft
Extremity Edema:: +2: Bilateral:
Wood Catheter: No
[2024-06-02 11:27] LABS: Lactic Acid 1.5 mmol/L (0.7-2.0)
[2024-06-02] MEDS: STERILE WATER FOR INJECTION 10 ML IV (11:43)
[2024-06-02] MEDS: ROCEPHIN 1000 MG IV (11:43)
[2024-06-02 12:09] LABS: Glucose - Point of Care 106 mg/dl (70-99)
--- NOTE | 2024-06-02 13:23 | W.PN.HOSP.TC ---
Addendum entered and electronically signed by Earnestine Talbot MD 06/02/24 14:25:
Hyponatremia
Severe protein calorie malnutrition of chronic illness
Original Note:
Today's Communication/Plan
-
Oncology consult
Assessment / Plan
Assessment / Plan
Impression:
Patient is 70 years old with history of breast cancer status post lumpectomy and radiation came to the ER with shortness of breath, bilateral lower extremity edema for last 3 weeks found to have large pleural effusion status post thoracentesis
cardiology consulted, echocardiogram shows:
Very limited study.
Left ventricular ejection fraction is 60-65%, by visual assessment.
Normal right ventricular size and function.
Small to moderate anterior pericardial effusion without evidence of hemodynamic
compromise.
Repeat chest x-ray today done shows
1. LARGE LEFT HYDROPNEUMOTHORAX involving 50% of the lung volume.
2. Severe left lower lobe airspace consolidation.
3. Moderate-sized right pleural effusion.
4. MULTIFOCAL BLASTIC OSSEOUS METASTATIC DISEASE.
5. Severe pectus excavatum deformity.
Assessment/plan
Acute CHF Exacerbation:
Acute diastolic CHF, no history of congestive heart failure
Patient presented with shortness of breath and lower extremity
BNP level is elevated at 851
Troponin level is 0.027
Was given IV Lasix 40 mg daily, caution with hypotension
Daily weight.
Strict I's and O's.
Consulted cardiology.
Continue air sampling and monitoring
06/02
echocardiogram shows:
Very limited study.
Left ventricular ejection fraction is 60-65%, by visual assessment.
Normal right ventricular size and function.
Small to moderate anterior pericardial effusion without evidence of hemodynamic
compromise.
Bilateral lower extremity ultrasound pending.
Hold Lasix for now with worsening.
Bilateral pleural effusion
CT chest:
There is a large left pleural effusion with associated collapse of the left lower lobe and partial collapse of the left upper lobe. There is a small/moderate right-sided pleural effusion with adjacent compressive atelectasis.
Scattered small sclerotic foci involving the thoracic spine and sternum, nonspecific although the setting of malignancy metastasis are possible.
Diffuse anasarca.
Fractures of the anterior left second, third and fourth ribs which appear subacute
Status post left-sided thoracentesis with removal of 1400 cc.
Fluid studies pending--- history of breast cancer rule out malignant pleural effusion
Small left pneumothorax, follow-up chest x-ray
06/02
Repeat chest x-ray today done shows
1. LARGE LEFT HYDROPNEUMOTHORAX involving 50% of the lung volume.
2. Severe left lower lobe airspace consolidation.
3. Moderate-sized right pleural effusion.
4. MULTIFOCAL BLASTIC OSSEOUS METASTATIC DISEASE.
5. Severe pectus excavatum deformity.
Discussed with daughter at bedside, will get oncology consult.
Concern for metastatic disease
CT chest, x-ray chest shows concern for metastatic disease.
Pending pleural fluid cytology
Will obtain oncology,
Postprocedure hypotension
Continue to monitor
Consider midodrine-cannot give IV fluid
Purple discoloration of bilateral
Patient stated that this been there for last 2 days.
Palpable pulses bilaterally.
Continue to monitor
Pending arterial studies
Acute renal failure
Creatinine slightly improved
hold lisinopril for now
Caution with diuresing
consult nephrology
06/02
Hold Lasix
Weight loss
- malignancy suspected, depression suspected per history from daughter
- Added ensure
Skin findings - hard skin nodules on the neck bilaterally. Non tender. No discharges. Has been present for a long time per patient
- consider outpatient skin biopsy
CODE STATUS: Full code
DVT prophylaxis: Heparin
Diet: Cardiac diet
Family communication: Discussed with daughter Margarita at bedside
Total time spent on today's encounter was 65 minutes which included time spent in counseling the patient/family regarding diagnosis and treatment plan as listed above, goals of care, and symptom management. Case was discussed with nursing staff,
specialists, and care coordinators/case management. All labs and imaging personally reviewed by me. Remainder the time spent in detailed review of previous records, lab data, imaging, and other medical provider documentation.
Anticipated Discharge: > 48 hours
Subjective/Interval History
-
Date of Service: June 02, 2024
Patient still with shortness of breath.
Repeat chest x-ray today done shows
1. LARGE LEFT HYDROPNEUMOTHORAX involving 50% of the lung volume.
2. Severe left lower lobe airspace consolidation.
3. Moderate-sized right pleural effusion.
4. MULTIFOCAL BLASTIC OSSEOUS METASTATIC DISEASE.
5. Severe pectus excavatum deformity.
Started on IV antibiotics
Objective Data
-
Labs:
Laboratory Results
06/02/24
08:05
WBC 11.1 H
Hgb 16.0
Hct 44.5
Plt Count 229 D
Sodium 131 L
Potassium 4.8
Chloride 101
Carbon Dioxide 18 L
BUN 79 H
Creatinine 2.2 H
Glucose 117 H
Calcium 9.0
Vital Signs:
Vital Signs
Temp Pulse Resp BP Pulse Ox
97.3 F 100 18 106/67 96
06/02/24 11:05 06/02/24 11:05 06/02/24 11:05 06/02/24 11:05 06/02/24 12:04
I&O
06/01/24 06/02/24 06/03/24
06:59 06:59 06:59
Intake Total 240 / 240
Output Total 50 / 50
Balance -50 / -50 240 / 240
Physical Exam
-
General: Respiratory Distress and Appears in Distress
HEENT: Normocephalic, Atraumatic, Moist Mucous Membranes, No Ptosis, PERRLA and Nose Appears Normal
Respiratory: Rales, Rhonchi, Crackles and Accessory Resp Muscle Use
Cardiac: Regular Rhythm, S1/S2 and Tachycardic
Breast: Deferred by me
GI: Soft, Nontender, Nondistended and Normal Bowel Sounds
Genito-urinary: No Costovertebral Tender
Musculoskeletal: Edema, Right Lower Extrem and Edema, Left Lower Extrem
Skin: Other (Bilateral hands purplish discoloration)
Neuro: Awake, Alert, Oriented, AO x 3 and No Motor Deficits
Psych: Calm
Data Reviewed
-
Diagnostic Radiology: Image personally visualized and interpreted and Report Reviewed by me
CT Scan: Image personally visualized and interpreted and Report Reviewed by me
Ultrasound: Image personally visualized and interpreted and Report Reviewed by me
MRI: Image personally visualized and interpreted and Report Reviewed by me
Medical Tests (Nuc Med, Echo etc): Image personally visualized and interpreted and Report Reviewed by me
Labs: Labs Reviewed by me
Old Records: Reviewed
--- NOTE | 2024-06-02 14:20 | CON.ONC ---
Impression
Impression
73 year old female
H/o Breast Cancer s/p lumpectomy
H/o breast cancer recurrence in L sided nodes s/p resection
Bilateral Pleural Effusions
Bilateral Lower Extremity Pitting Edema
Hematemesis
Plan
Plan
- S/p Thoracentesis, fluid sent for cytology, will follow for results, vital signs stable
- Suspicion for metastatic disease given NEW sclerotic and blastic lesions on the spine with history of breast cancer w/ previous recurrence s/p lymph node resection. Mammograms thus far are reportedly wnl, though prior genetic testing, surgical
pathology reports unavailable at this time.
- Uncertain until pathology results come back from pleural fluid. If malignant, can pursue further testing to evaluate Estrogen receptor sensitivity and possible hormonal medications if she is amenable, though she does not seem keen on chemotherapy
- Would agree with obtaining further CT imaging of the abdomen and pelvis, especially given new onset of hematemesis and worsening renal function/findings of hydronephrosis without other explanation
Patient History
History of Present Illness
73 year old female with a past medical history of breast cancer s/p lumpectomy, hypertension, depression who presented with progressive BL LE edema, worsening shortness of breath, with intermittent dysphagia, decrease in appetite and weight loss.
She denies any fevers, chills. She endorses chronic back pain which has worsened with her immobility due to shortness of breath on exertion. She also, after speaking daughter, endorsed a history of fall x1 week ago which she says is due to muscular
weakness in the LE. She did not report any LOC, palpitations, chest pain during the fall. She did not hit her head.
She was diagnosed with breast cancer in 2011 and treated at [facility] with Lumpectomy and local radiation as she did not want chemotherapy. She was put on estrogen receptor antagonists (of which she and her daughter are not sure of the name). She was
followed at [facility] for a time and in 2018 there was a recurrence on her lymph nodes on the L side which were also treated with surgery and radiation, no chemo. Of note, in 2013 she developed severe depression after the of her and her
follow up with doctors was intermittent at best. She finished radiation for her recurrence in 2019 during which time she moved to this area. The daughter explains that she never followed up with Oncology in this area like she was asked to and did
not want to drive down to [place]. She did, for a time, receive 6 month follow up imaging and then continued to receive yearly mammograms which did not show any recurrence or new masses. However, despite this imaging, she never followed up in office
with an oncologist or her PCP.
CT scan imaging of her chest showed large left pleural effusion with associated collapse of the LLL and partial collapse of the CHARITO w/ small R sided pleural effusion/atelectasis. 1450ccs of fluid were drained and sent for analysis, concern for
malignant effusion. LE venous doppler ruled out venous thrombosis. Renal US demonstrated MODERATE ASYMMETRIC DISTENTION of the RIGHT INTRARENAL COLLECTING SYSTEM suggesting MODERATE RIGHT HYDRONEPHROSIS secondary to a right ureteral obstruction, w/o
sonographic evidence for R intrarenal calculus.
While speaking with the patient she became upset with discussions of her prior cancer and began to feel nauseous. She reached for a bed gandara and vomited approx. 200-300ml of foul smelling, maroon colored liquid. She said this was new and had never
happened to her before.
Past-Medical/Surgical History
Past Medical History: Breast cancer s/p lumpectomy and radiation, hypertension, depression
Past Surgical History: Lumpectomy Left lymph node resection 2019 (chart says 2021, daughter confirmed resection was in 2019, though I believe this was done at [facility])
Patient Medication
�Medication �Instructions �Recorded �Confirmed �Last Taken �Type
acetaminophen 325 mg tablet 650 mg PO Q6HPRN PRN mild pain 05/31/24 05/31/24 05/30/24 History
(Tylenol)
calcium carbonate 500 mg PO DAILY Supplement 05/31/24 05/31/24 05/30/24 History
herbal drugs 1 tab PO DAILYPRN PRN constipation 05/31/24 05/31/24 Unknown History
lisinopril 20 mg tablet 20 mg PO DAILY Blood Pressure 05/31/24 05/31/24 05/30/24 History
vitamin A-vitamin C-vit E-min 1 tab PO DAILY Supplement 05/31/24 05/31/24 05/30/24 History
tablet
Active Medications
Generic Name Dose Route Start Last Admin
Trade Name Freq PRN Reason Stop Dose Admin
Acetaminophen 650 mg 06/01/24 00:12 06/01/24 00:17
Acetaminophen 325 Mg Tablet PO 06/29/24 00:11 650 mg
Q6HPRN PRN Administration
mild pain
Ceftriaxone Sodium 1,000 mg 06/02/24 12:00 06/02/24 11:43
Ceftriaxone 1000 Mg / 10 Ml Vial IV 1,000 mg
Q24H RAMONA Administration
Furosemide 40 mg 06/01/24 08:00 06/02/24 10:16
Furosemide 40 Mg (10 Mg/Ml) 4 Ml Vial IV 06/29/24 07:59 40 mg
DAILY RAMONA Administration
Heparin Sodium 5,000 units 06/01/24 00:36 06/02/24 10:15
Heparin 5,000 Units/Ml 1 Ml Vial SC 06/29/24 00:35 5,000 units
Q8 RAMONA Administration
Azithromycin 500 mg in 250 mls @ 250 mls/hr 06/02/24 11:00
Zithromax Infusion IV
Q24H RAMONA
Ondansetron HCl 4 mg 06/01/24 07:56 06/01/24 18:06
Ondansetron 4 Mg/2 Ml Vial IV 06/29/24 07:55 4 mg
Q6HPRN PRN Administration
NAUSEA/VOMITING
Sodium Chloride 0 flush 05/31/24 22:00 06/02/24 11:43
Sodium Chloride 0.9% (Flush) Syringe IV 06/28/24 21:59 1 flush
PER PROTOCOL RAMONA Administration
Sterile Water 10 ml 06/02/24 12:00 06/02/24 11:43
Sterile Water For Injection 10 Ml Vial IV 06/30/24 11:59 10 ml
Q24H RAMONA Administration
Review of Systems
-
History Source: Patient and Family
Constitutional: Reports Weight Loss, No Appetite and Fatigue; Denies Fever, Night Sweats or Chills
EENT: Reports No Symptoms
Respiratory: Reports Trouble Breathing; Denies Cough, Hemoptysis or Wheezing
Cardiac: Denies Chest Pain, Diaphoresis, Palpitations or Syncope
GI: Reports Nausea, Vomiting and Hemetemesis; Denies Abdominal Pain, Diarrhea or Constipated
Breast: Reports No Symptoms
: Reports No Symptoms
Musculoskeletal: Reports No Symptoms
Skin: Denies Itching or Rash
Neuro: Denies Weakness, Numbness or Lightheadedness
Endocrine: Reports No Symptoms
Hematologic/Lymphatic: Denies Swollen Glands or Bruising
Allergy / Immunology: Reports No Symptoms
Psych: Reports No Symptoms
Physical Exam
-
General: Well Developed and Well Nourished
HEENT: Moist Mucous Membranes; Negative Jaundice
Cardiology: Normal Sinus Rhythm, S1 and S2; Negative Murmur
GI: Soft, Normal Bowel Sounds and Other (Hematemesis/Maroon colored vomitus, multiple episodes 200-300mls)
Musculoskeletal: No Clubbing, No Cyanosis, Edema, Right Lower Extrem (3+ pitting) and Edema, Left Lower Extrem (3+ pitting)
Neurology: No Word Finding Difficulty
Skin: Warm, Dry and IV Access / Catheter Site
Hematologic / Lymphatic: No Petechiae
Psych: Depressed
Labs
Lab Results
WBC 11.1 10^3/uL (4.8-10.8) H 06/02/24 08:05
RBC 5.07 10^6/uL (4.20-5.40) 06/02/24 08:05
Hgb 16.0 g/dL (12.0-16.0) 06/02/24 08:05
Hct 44.5 % (37.0-47.0) 06/02/24 08:05
MCV 87.8 fL (81.0-99.0) 06/02/24 08:05
MCH 31.6 pg (27.0-31.0) H 06/02/24 08:05
MCHC 36.0 g/dL (33.0-37.0) 06/02/24 08:05
RDW 16.1 % (11.5-14.5) H 06/02/24 08:05
Plt Count 229 10^3/uL (130-400) D 06/02/24 08:05
MPV 11.1 fL (7.4-10.4) H 06/02/24 08:05
Abs Immat Gran (auto) 0.1 10^3/uL (0-0.05) H 05/31/24 16:38
Absolute Neuts (auto) 12.9 10^3/uL (1.4-6.5) H 05/31/24 16:38
Absolute Lymphs (auto) 0.4 10^3/uL (1.2-3.4) L 05/31/24 16:38
Absolute Monos (auto) 0.9 10^3/uL (0.1-0.6) H 05/31/24 16:38
Absolute Eos (auto) 0.0 10^3/uL (0-0.7) 05/31/24 16:38
Absolute Basos (auto) 0.0 10^3/uL (0-0.2) 05/31/24 16:38
Immature Gran % 0.5 % (0-0.5) 05/31/24 16:38
Neutrophils % 90.4 % (42.2-75.2) H 05/31/24 16:38
Lymphocytes % 2.8 % (20.5-51.1) L 05/31/24 16:38
Monocytes % 6.0 % (1.7-9.3) 05/31/24 16:38
Eosinophils % 0.1 % (0-6) 05/31/24 16:38
Basophils % 0.2 % (0-2) 05/31/24 16:38
Creatinine 2.2 mg/dL (0.6-1.0) H 06/02/24 08:05
Vital Signs
Vital Signs
Temp Pulse Resp BP Pulse Ox
97.3 F 100 18 106/67 96
06/02/24 11:05 06/02/24 11:05 06/02/24 11:05 06/02/24 11:05 06/02/24 12:04
[2024-06-02] MEDS: ZITHROMAX INFUSION 250 IV (14:26)
[2024-06-02] MEDS: ZOFRAN 4 MG IV (15:16)
--- NOTE | 2024-06-02 16:00 | PTCARENOTE ---
pt AAO x3, KING weakly; able to transfer from bed to stretcher with assist x2; very unsteady/weak with OOB activity. VSS. On room air- pulse ox 93 %, Pt with (+) CASTRO/tachypnea; occ cough- yellow mucus. Abd soft, appetite very poor. Pt vomiting
large amts brown secretions; (+) mild nausea. Dr. Talbot notified. IV Zofran given, pt to start Iv Protonix BID. Incont small amts urine. Afebrile; skin warm and dry. Resting quietly at present. Will continue to monitor.
--- NOTE | 2024-06-02 16:20 | CON.GI ---
Addendum entered and electronically signed by Edie Anna DO 06/02/24 17:49:
The patient was seen and examined by me independently in collaboration with the nurse practitioner.
Past medical history/social history/medications/allergies/family history reviewed.
Lab data and imaging data reviewed.
Harriet Christie is a 73 y.o. female w/ pmhx breast ca s/p lumpectomy and radiation therapy with recurrence of LN positive cancer on the left s/p LN dissection and repeat radiation admitted with worsening SOB found to moderate R. sided pleural effusion,
physical exam significant for anasarca and mottling of her digits. She underwent thoracentesis which was complicated by a pneumothorax. Post-procedure CXR showed evidence of large left hydropneumothorax involving 50% of lung volume, severe LLL
airspace consolidation, moderate-sized right pleural effusion, multifocal blastic osseous metastatic disease, suspect breast cancer recurrence . GI consulted for an episode of coffee-ground emesis following the procedure. Hgb 16 this morning, no
repeat. MIKEY with BUN 79/Cr. 2.2. Patient resting comfortably at time of evaluation, daughter at bedside, asked GI team not to wake patient. Daughter reports issues with nausea over the last few weeks, using NSAIDS and drinking wine daily. Abdominal
US with evidence of right hydro, urine +
A/P:
Repeat hemoglobin, obtain T&C
Zofran prn
PPI gtt
CT A/P
Hold on EGD at this time-- pending clinical course, can consider based on respiratory status
Addendum entered and electronically signed by JOB Melton 06/02/24 17:40:
also discussed with daughter if persistent coffee ground and unclear etiology consider EGD if resp status allow.
Original Note:
Consultation
-
Date/Time Consultation Requested: 06/02/24 1600
Date/Time Consultation Performed: 06/02/24 1620
Requesting Provider: Earnestine Talbot MD
Performing Provider: JOB Mccallum, Amanda Anna DO
Reason for Consultation: concern for UGI bleed
Medical History
Chief Complaint / HPI
Chief Complaint: coffee ground emesis
History of Present Illness:
Pt is a 73yo with hx breast CA with 2012 initial lumpectomy, lymph node dissection and radiation then further LN dissection and radiation around 2020(follows with oncology at [facility]- Dr. Britni Lindsay), HTN with admission with LE edema and
shortness of breath. After admission she is noted with vomiting coffee ground emesis and asked to evaluate. On admission she is noted with CT chest with pleural effusion and scattered small sclerotic foci involving thoracic spine, ans sternum with
possible mets. CXR with similar finding large left hydropneumothorax, moderate pleural effusion and multi focal blastic osseous mets. She completed thoracentesis for 1450 ml. Labs notable for WBC 14,2000, na 130, creat 1.8, albumin 3, with
normal LFT's, INR and platelets. Urine cx with gram neg bacilli.
Pt current sleeping but in review with daughter hx GERD with occasional vomiting with eating larger meals and also some constipation in past. She also related some wt loss over time. She denies hx dysphagia, odynophagia, diarrhea or rectal
bleeding. No hx EGD or colonoscopy that family is aware of. + Daily NSAID use. Not on anticoagulation prior to admission. + daily ETOH use several glasses of wine.
Past Medical History
Past Medical History: Cancer (breast CA s/p lumpectomy, s/p lymph node dissection and XRT with recurrent node + and repeat radiation) and HTN
Past Surgical History: Other (lumpectomy, LN dissection)
Social History
Tobacco: Non-Smoker
Alcohol: Daily (wine daily)
Drug: None
Living: Alone
Employment: Retired
Family History
Family History: Other (daughter with GERD no family hx liver disease )
Allergies / Home Medications
Allergy/AdvReac Type Severity Reaction Status Date / Time
blue dye Allergy Hives Verified 05/31/24 16:28
Penicillins Allergy Unknown Verified 05/31/24 16:28
�Medication �Instructions �Recorded
acetaminophen 325 mg tablet 650 mg PO Q6HPRN PRN mild pain 05/31/24
(Tylenol)
calcium carbonate 500 mg PO DAILY Supplement 05/31/24
herbal drugs 1 tab PO DAILYPRN PRN constipation 05/31/24
lisinopril 20 mg tablet 20 mg PO DAILY Blood Pressure 05/31/24
vitamin A-vitamin C-vit E-min 1 tab PO DAILY Supplement 05/31/24
tablet
Review of Systems
-
History Source: Patient (minimal as sleeping quietly ) and Family
Constitutional: Reports Weight Loss (over time ) and Other (cool hands/feet )
EENT: Reports No Symptoms
Respiratory: Reports Trouble Breathing
Abdomen/GI: Reports Nausea, Vomiting and Constipated
: Reports No Symptoms
Musculoskeletal: Reports No Symptoms
Neurological: Reports Weakness
Hematologic/Lymphatic: Reports Bleeding
Vital Signs
Temp Pulse Resp BP Pulse Ox
97.8 F 109 18 106/71 93
06/02/24 15:19 06/02/24 15:19 06/02/24 15:19 06/02/24 15:19 06/02/24 15:51
Physical Exam
Exam
General: Other (pale appearing, sleeping in exam )
HEENT: Normocephalic and Anicteric
Respiratory: Other (decreased bases )
Cardiac: Other (tachy )
GI: Soft, Non Tender and Non Distended
Musculoskeletal: No Clubbing and No Cyanosis
Skin: Dry and Other (cool extremities with purplish fingers and toes )
Neuro: Other (sleeping quietly minimal verbal communication)
Psych: Calm
Results
WBC 11.1 10^3/uL (4.8-10.8) H 06/02/24 08:05
Hgb 16.0 g/dL (12.0-16.0) 06/02/24 08:05
Hct 44.5 % (37.0-47.0) 06/02/24 08:05
MCV 87.8 fL (81.0-99.0) 06/02/24 08:05
Plt Count 229 10^3/uL (130-400) D 06/02/24 08:05
Absolute Neuts (auto) 12.9 10^3/uL (1.4-6.5) H 05/31/24 16:38
PT 13.6 Sec (11.4-14.6) 06/01/24 06:56
INR 1.01 06/01/24 06:56
Sodium 131 mmol/L (135-145) L 06/02/24 08:05
Potassium 4.8 mmol/L (3.5-5.1) 06/02/24 08:05
Chloride 101 mmol/L (98-107) 06/02/24 08:05
Carbon Dioxide 18 mmol/L (22-30) L 06/02/24 08:05
BUN 79 mg/dl (7-17) H 06/02/24 08:05
Creatinine 2.2 mg/dL (0.6-1.0) H 06/02/24 08:05
Calcium 9.0 mg/dl (8.4-10.2) 06/02/24 08:05
Total Bilirubin 1.2 mg/dl (0.2-1.3) 05/31/24 16:38
AST 18 U/L (14-36) 05/31/24 16:38
ALT 14 U/L (0-35) 05/31/24 16:38
Alkaline Phosphatase 93 U/L (38-126) 05/31/24 16:38
Diagnostic Image Results:
06/02/24 US Renal Only W/O Bladder
1. MODERATE ASYMMETRIC DISTENTION of the RIGHT INTRARENAL COLLECTING SYSTEM suggesting MODERATE RIGHT HYDRONEPHROSIS secondary to a right ureteral obstruction.
2. Mild ascites in the right subhepatic space.
3. Moderate-sized right pleural effusion.
06/02/24 US Periph Venous LOWER Ext Issa
1. No sonographic evidence for lower extremity venous thrombosis.
2. Mild diffuse subcutaneous edema throughout both lower legs.
06/02/24 CR Chest - 2 Views
1. LARGE LEFT HYDROPNEUMOTHORAX involving 50% of the lung volume.
2. Severe left lower lobe airspace consolidation.
3. Moderate-sized right pleural effusion.
4. MULTIFOCAL BLASTIC OSSEOUS METASTATIC DISEASE.
5. Severe pectus excavatum deformity.
CT Chest W/o Iv Contrast
There is a large left pleural effusion with associated collapse of the left lower lobe and partial collapse of the left upper lobe. There is a small/moderate right-sided pleural effusion with adjacent compressive atelectasis.
Scattered small sclerotic foci involving the thoracic spine and sternum, nonspecific although the setting of malignancy metastasis are possible.
Diffuse anasarca.
Fractures of the anterior left second, third and fourth ribs which appear subacute.
Prior GI Procedures:
EGD: none
Colonoscopy: none
Assessment / Plan
-
Pt is a 73yo with hx breast CA with 2011 initial lumpectomy, lymph node dissection and radiation then further LN dissection and radiation around 2020(follows with oncology at [facility]- Dr. Britni Lindsay), HTN with admission with LE edema and
shortness of breath. After admission she is noted with vomiting coffee ground emesis and asked to evaluate. On admission she is noted with CT chest with pleural effusion and scattered small sclerotic foci involving thoracic spine, ans sternum with
possible mets. CXR with similar finding large left hydropneumothorax, moderate pleural effusion and multi focal blastic osseous mets. She completed thoracentesis for 1450 ml. Labs notable for WBC 14,2000, na 130, creat 1.8, albumin 3, with
normal LFT's, INR and platelets. Urine cx with gram neg bacilli.
-coffee ground emesis
-shortness of breath with concern for pleural effusion on admission s/p tap
-imaging with concern for metastatic disease
-MIKEY on admission
-UTI with tachycardia/hypotension concern for sepsis
-renal US with moderate hydro with right ureteral obstruction
-hx breast CA with prior LN dissection and radiation follow at [facility]
-daily NSAID and ETOH use
-HX HTN with hypotension on admission
PLAN:
Etiology of coffee grounds related to UGI bleed-PUD, tanner lesion - with NSAID/ETOH use, constipation related , secondary to other process with concern for UTI/hydro vs other
agree with PPI BID
cont abx
trend hbg and monitor for recurrent vomiting
await CT can also eval for underlying constipation issues/ other occult process
consider urology eval with hydro and ureteral obstruction
s/p oncology eval awaiting pleural fluid path
reviewed via tiger text with Dr. Talbot
-
-
Thank you for consultation and allowing me to participate in the patient's care. Please call the consultant rn GI physician during the after hours with any questions or concerns.
[2024-06-02] MEDS: NSS (PRESERVATIVE FREE) 10 ML IV (16:27)
[2024-06-02] MEDS: PROTONIX IV 40 MG IV (16:27)
--- NOTE | 2024-06-02 17:01 | CON.ONC ---
Impression
Impression
pleural effusion, small sclerotic bone lesions, suspicious for mets
remote h/o ER+ breast cancer, treated at [facility]
Plan
Plan
Will await cytology from pleural fluid - please contact oncology once resulted
Assuming breast cancer is diagnosed, will consider treatment options, likely oral anti-estrogen therapies
She'll need add'l imaging for staging, bone scan and CT A/P or PET/CT scan, especially if renal function doesn't improve enough for CT scans w/ contrast
Patient History
History of Present Illness
This is a 73 yo F w/ PMH of remote breast cancer, treated at [facility], with sumaya recurrence 5 or 6 years ago, treated with additional radiation and antiestrogen therapy for some time, who presented to the ER with increasing dyspnea and leg swelling.
Imaging showed large left pleural effusion with suspected bony mets. She underwent thoracentesis, cytology is pending. Creatinine was 1.8 at admission, 2.2 today. She does not see doctors regularly, daughter admits that she asks her own doctor to
prescribe antibiotics if she thinks he mom needs them.
Patient was sleeping and daughter asked me not to wake her or discuss any cancer details in earshot of patient.
Past-Medical/Surgical History
Past Medical History: Cancer and HTN
Social History
Tobacco: Non-Smoker
Alcohol: Former (used to drink ETOH, now doesn't)
Family History
Family History: Other ('heart issues' on mom's side- details unclear)
Patient Medication
�Medication �Instructions �Recorded �Confirmed �Last Taken �Type
acetaminophen 325 mg tablet 650 mg PO Q6HPRN PRN mild pain 05/31/24 05/31/24 05/30/24 History
(Tylenol)
calcium carbonate 500 mg PO DAILY Supplement 05/31/24 05/31/24 05/30/24 History
herbal drugs 1 tab PO DAILYPRN PRN constipation 05/31/24 05/31/24 Unknown History
lisinopril 20 mg tablet 20 mg PO DAILY Blood Pressure 05/31/24 05/31/24 05/30/24 History
vitamin A-vitamin C-vit E-min 1 tab PO DAILY Supplement 05/31/24 05/31/24 05/30/24 History
tablet
Active Medications
Generic Name Dose Route Start Last Admin
Trade Name Freq PRN Reason Stop Dose Admin
Acetaminophen 650 mg 06/01/24 00:12 06/01/24 00:17
Acetaminophen 325 Mg Tablet PO 06/29/24 00:11 650 mg
Q6HPRN PRN Administration
mild pain
Ceftriaxone Sodium 1,000 mg 06/02/24 12:00 06/02/24 11:43
Ceftriaxone 1000 Mg / 10 Ml Vial IV 1,000 mg
Q24H RAMONA Administration
Furosemide 40 mg 06/01/24 08:00 06/02/24 10:16
Furosemide 40 Mg (10 Mg/Ml) 4 Ml Vial IV 06/29/24 07:59 40 mg
DAILY RAMONA Administration
Heparin Sodium 5,000 units 06/01/24 00:36 06/02/24 10:15
Heparin 5,000 Units/Ml 1 Ml Vial SC 06/29/24 00:35 5,000 units
Q8 RAMONA Administration
Azithromycin 500 mg in 250 mls @ 250 mls/hr 06/02/24 11:00 06/02/24 14:26
Zithromax Infusion IV 250 mls
Q24H RAMONA Administration
Ondansetron HCl 4 mg 06/01/24 07:56 06/02/24 15:16
Ondansetron 4 Mg/2 Ml Vial IV 06/29/24 07:55 4 mg
Q6HPRN PRN Administration
NAUSEA/VOMITING
Pantoprazole Sodium 40 mg 06/03/24 08:00
Pantoprazole Sodium 40 Mg/10 Ml Vial IV 07/01/24 07:59
BID RAMONA
Sodium Chloride 0 flush 05/31/24 22:00 06/02/24 16:27
Sodium Chloride 0.9% (Flush) Syringe IV 06/28/24 21:59 1 flush
PER PROTOCOL RAMONA Administration
Sodium Chloride 10 ml 06/03/24 08:00
Sodium Chloride 0.9% (Preservative Free) 10 Ml Vial IV 07/01/24 07:59
BID RAMONA
Sterile Water 10 ml 06/02/24 12:00 06/02/24 11:43
Sterile Water For Injection 10 Ml Vial IV 06/30/24 11:59 10 ml
Q24H RAMONA Administration
Physical Exam
-
unable to examine, daughter asked me not to wake her
Labs
Lab Results
WBC 11.1 10^3/uL (4.8-10.8) H 06/02/24 08:05
RBC 5.07 10^6/uL (4.20-5.40) 06/02/24 08:05
Hgb 16.0 g/dL (12.0-16.0) 06/02/24 08:05
Hct 44.5 % (37.0-47.0) 06/02/24 08:05
MCV 87.8 fL (81.0-99.0) 06/02/24 08:05
MCH 31.6 pg (27.0-31.0) H 06/02/24 08:05
MCHC 36.0 g/dL (33.0-37.0) 06/02/24 08:05
RDW 16.1 % (11.5-14.5) H 06/02/24 08:05
Plt Count 229 10^3/uL (130-400) D 06/02/24 08:05
MPV 11.1 fL (7.4-10.4) H 06/02/24 08:05
Abs Immat Gran (auto) 0.1 10^3/uL (0-0.05) H 05/31/24 16:38
Absolute Neuts (auto) 12.9 10^3/uL (1.4-6.5) H 05/31/24 16:38
Absolute Lymphs (auto) 0.4 10^3/uL (1.2-3.4) L 05/31/24 16:38
Absolute Monos (auto) 0.9 10^3/uL (0.1-0.6) H 05/31/24 16:38
Absolute Eos (auto) 0.0 10^3/uL (0-0.7) 05/31/24 16:38
Absolute Basos (auto) 0.0 10^3/uL (0-0.2) 05/31/24 16:38
Immature Gran % 0.5 % (0-0.5) 05/31/24 16:38
Neutrophils % 90.4 % (42.2-75.2) H 05/31/24 16:38
Lymphocytes % 2.8 % (20.5-51.1) L 05/31/24 16:38
Monocytes % 6.0 % (1.7-9.3) 05/31/24 16:38
Eosinophils % 0.1 % (0-6) 05/31/24 16:38
Basophils % 0.2 % (0-2) 05/31/24 16:38
Creatinine 2.2 mg/dL (0.6-1.0) H 06/02/24 08:05
Vital Signs
Vital Signs
Temp Pulse Resp BP Pulse Ox
97.8 F 109 18 106/71 93
06/02/24 15:19 06/02/24 15:19 06/02/24 15:19 06/02/24 15:19 06/02/24 15:51
[2024-06-02] MEDS: LIDOCAINE 4% PATCH 1 PATCH TOPICAL (21:15)
[2024-06-02] MEDS: TYLENOL 650 MG PO (21:15)
[2024-06-02] MEDS: COMPAZINE 5 MG IV (21:16)
[2024-06-03 03:19] VITALS: BP 102/66
[2024-06-03 06:00] VITALS: BMI 22.8
[2024-06-03 07:54] VITALS: BP 108/69
--- NOTE | 2024-06-03 07:58 | W.PN.CD ---
Today's Communication / Plan
-
Repeat Echo
Monitor kidney function
Impression / Plan
-
HFpEF? LE edema anasarca
- Repeat echo given tachycardia and effusion; echo was previously poor quality as patient was unable to tolerate
- Diuresis per nephrology
SOB s/p throacentesis:
-pleural effusions noted on imaging as detailed below (L > R) s/p thora 1.5 L removed
- has not improved SOB at this point
Hx Breast cancer:
-Chest imaging raises possibility of metastasis- work-up/management per primary team
Abnormal creatinine, hyponatremia:
-unknown baseline
-monitor response to diuresis. AM labs are pending.
-nephrology is consulted
HTN:
-stable
-BP low
Data:
Chest CT scan without contrast: large left pleural effusion with associated collapse of the left lower lobe and partial collapse of the left upper lobe. There is a small/moderate right-sided pleural effusion with adjacent compressive atelectasis.
Scattered small sclerotic foci involving the thoracic spine and sternum, nonspecific although the setting of malignancy metastasis are possible. Diffuse anasarca. Fractures of the anterior left second, third and fourth ribs which appear subacute.
Subjective: NAEO patient feels somewhat improved
Echo June 01 2024: CONCLUSIONS
Very limited study.
Left ventricular ejection fraction is 60-65%, by visual assessment.
Normal right ventricular size and function.
Small to moderate anterior pericardial effusion without evidence of hemodynamic
compromise.
No prior study available for comparison.
Physical Exam
Vital Signs/Labs
Vital Signs
Temp Pulse Resp BP Pulse Ox
97.8 F 110 18 108/69 97
06/03/24 07:54 06/03/24 07:54 06/03/24 07:54 06/03/24 07:54 06/03/24 07:54
06/02/24 06/03/24 06/04/24
06:59 06:59 06:59
Actual Weight 124 lb 9 oz 124 lb 9.825 oz
PT 13.6 Sec (11.4-14.6) 06/01/24 06:56
INR 1.01 06/01/24 06:56
Magnesium 2.4 mg/dl (1.6-2.3) H 06/01/24 08:48
Triglycerides 173 mg/dl (10-149) H 06/01/24 06:56
LDL Cholesterol, Calc 157 mg/dl 06/01/24 06:56
VLDL Cholesterol, Calc 34 mg/dl (0-30) H 06/01/24 06:56
HDL Cholesterol 72 mg/dl 06/01/24 06:56
05/31/24
16:38
Buj-U-Zzxnrwuchvh Pept 851
LAB Results
05/31/24
16:38
Troponin I 0.027
Physical Exam
Constitutional: Other (appears chronically ill )
EENT: Anicteric
Cardiovascular: Rhythm & rate is regular
Respiratory: Other (shallow breathing no wheezes/rales )
GI: Soft
Neuro/Psych: AO x 3
Data Reviewed
-
Date of Service: June 03, 2024
EKG: Tracing Personally Visualized and interpreted (sinus tach)
Echo: Tracing Personally Visualized and interpreted
Labs: Labs Reviewed by me
--- NOTE | 2024-06-03 08:25 | W.PN.GI.CBS2 ---
Today's Communication / Plan
-
Supportive care with PPI, antiemetics. F/u AM labs to ensure stable hemoglobin. No N/V overnight.
Assessment / Plan
-
Pt is a 73yo with hx breast CA with 2011 initial lumpectomy, lymph node dissection and radiation then further LN dissection and radiation around 2020(follows with oncology at [place]- Dr. Britni Lindsay), HTN with admission with LE edema and
shortness of breath. After admission she is noted with vomiting coffee ground emesis and asked to evaluate. On admission she is noted with CT chest with pleural effusion and scattered small sclerotic foci involving thoracic spine, ans sternum with
possible mets. CXR with similar finding large left hydropneumothorax, moderate pleural effusion and multi focal blastic osseous mets. She completed thoracentesis for 1450 ml. Labs notable for WBC 14,2000, na 130, creat 1.8, albumin 3, with
normal LFT's, INR and platelets. Urine cx with gram neg bacilli.
-coffee ground emesis
-shortness of breath with concern for pleural effusion on admission s/p tap
-imaging with concern for metastatic disease
-MIKEY on admission
-UTI with tachycardia/hypotension concern for sepsis
-renal US with moderate hydro with right ureteral obstruction
-hx breast CA with prior LN dissection and radiation follow at [place]
-daily NSAID and ETOH use
-HX HTN with hypotension on admission
PLAN:
Etiology of coffee grounds related to UGI bleed-PUD, tanner lesion - with NSAID/ETOH use, constipation related , secondary to other process with concern for UTI/hydro vs other
agree with PPI BID
cont abx
trend hbg and monitor for recurrent vomiting-- no episodes since yesterday, repeat hgb pending
await CT can also eval for underlying constipation issues/ other occult process
consider urology eval with hydro and ureteral obstruction
Hold off on EGD at this time and treat supportively, high risk for sedation given large pneumo, consolidation and pleural effusion and no concerns for active/brisk GI bleeding at this time. Will follow-up H&H
Subjective
Subjective
Date of Service: June 03, 2024
Patient seen in follow-up this morning. Reports no nausea, denies any bloody emesis overnight/following episode yesterday aftenroon. No repeat labs obtained following episode of coffee-ground emesis, AM labs currently pending.
Objective
Data Reviewed
Laboratory Data:
Laboratory Results
PT 13.6 Sec (11.4-14.6) 06/01/24 06:56
INR 1.01 06/01/24 06:56
Magnesium 2.4 mg/dl (1.6-2.3) H 06/01/24 08:48
Total Bilirubin 1.2 mg/dl (0.2-1.3) 05/31/24 16:38
AST 18 U/L (14-36) 05/31/24 16:38
ALT 14 U/L (0-35) 05/31/24 16:38
Alkaline Phosphatase 93 U/L (38-126) 05/31/24 16:38
Vital Signs and I&O:
Vital Signs
Temp Pulse Resp BP Pulse Ox
97.8 F 110 18 108/69 98
06/03/24 07:54 06/03/24 07:54 06/03/24 07:54 06/03/24 07:54 06/03/24 08:21
I&O
06/02/24 06/03/24 06/04/24
06:59 06:59 06:59
Intake Total 240 / 240 730 / 730
Balance 240 / 240 730 / 730
Physical Exam
Physical Exam
HEENT: Anicteric and Moist mucous membranes
GI: Soft, Non Distended and Non Tender
Extremities: Other (purple discoloration in digits improved from yesterday)
[2024-06-03] MEDS: PROTONIX IV 40 MG IV ×2 (08:26→20:30)
[2024-06-03] MEDS: NSS (PRESERVATIVE FREE) 10 ML IV ×2 (08:27→20:30)
[2024-06-03] MEDS: FLUSH (NSS) 1 FLUSH IV ×3 (08:27→12:23)
[2024-06-03 08:35] LABS: Hematocrit 40.4 % (37.0-47.0); Hemoglobin 14.1 g/dL (12.0-16.0); Mean Corp Hgb Conc. 34.9 g/dL (33.0-37.0); Mean Corpuscular Hgb 31.2 pg (27.0-31.0); Mean Corpuscular Volume 89.4 fL (81.0-99.0); Platelet Count 332 10^3/uL (130-400); Red Blood Cell Count 4.52 10^6/uL (4.20-5.40); Red Cell Dist. Width 15.9 % (11.5-14.5); White Blood Cell Count 12.7 10^3/uL (4.8-10.8)
[2024-06-03 09:57] LABS: ALT (SGPT) 13 U/L (0-35); AST (SGOT) 19 U/L (14-36); Albumin 3.1 g/dl (3.5-5.0); Alkaline Phosphatase 68 U/L (38-126); Blood Urea Nitrogen 89 mg/dl (7-17); Calcium 8.8 mg/dl (8.4-10.2); Carbon Dioxide 17 mmol/L (22-30); Chloride 97 mmol/L (98-107); Direct Bilirubin 0.6 mg/dl (0.0-0.4); Estimated Creatinine Clearance 16 ml/min; Glucose 101 mg/dl (70-99); Potassium 5.4 mmol/L (3.5-5.1); Sodium 130 mmol/L (135-145); Total Bilirubin 1.2 mg/dl (0.2-1.3); Total Protein 5.9 g/dl (6.3-8.2); eGFR 19.69
[2024-06-03] MEDS: ZITHROMAX INFUSION 250 IV (11:08)
--- NOTE | 2024-06-03 11:16 | W.PN.NEPH.PH ---
Today's Communication / Plan
-
Hold Lasix
Place Watson catheter
MAP needs to increase to 65, antihypertensive held
CT report to be reviewed in regards to right hydronephrosis
Follow BMP
Assessment/Plan
-
IMP:
SOB and Volume overload
BIlat pleural effusion left >right
s/p Thoracentesis 1.45lit and mild pneumothx post
MIKEY
Weightloss
elevated LFTs
Skin findings - hard skin nodules on the neck bilaterally.
Scattered small sclerotic foci involving the thoracic spine and sternum, nonspecific although the setting of malignancy metastasis are possible on CT.
Plan:
A/w SOB, noted anasarca and bilat pleural effusion
MIKEY-no baseline cr available , cr cont to increase to 2.5
Patient remains hemodynamically unstable
Place Watson catheter in setting of acute kidney injury with questionable urine output
UA -UTI sample, U na low 7-suggest cardiorenal/prerenal
U PCR only 100mg/gm of cr unlikely nephrotic
echo normal EF but small to mod pericardial effusion
Renal ultrasound notes moderate Right intrarenal collecting system dilatation consistent with hydronephrosis kidney sizes small but symmetrical
CT scan obtained today and to be reviewed : will likely require urology consult if obstruction present
Place Watson catheter
Etiology of hypotension not discerned: Is not related to pericardial effusion?, Infection from underlying E. coli UTI, pneumothorax...
Hyperkalemia and metabolic acidosis persist
mild hyponatremia likely from hypervolemia-maintain FR
Antibiotics renally dosed
CXR noted left penumothx post procedure 06/01
suspect bone mets-Onc consulted, pleural fluid cytology pending
labs in am
d/w pt , cards , nursing and primary
Patient is at high clinical risk with continued renal failure
-
-
Date of Service: June 03, 2024
CC / HPI / ROS
-
Chief Complaint:
MIKEY
History of Present Illness:
MIKEY and hyponatremia worsening
Hyperkalemia noted
Persistent metabolic acidosis
UOP not recorded-incontinent
Hemodynamically labile
Review of Systems:
still sob, FTT
poor po intake
no pain
nodular rash on ant chest
Labs
-
Labs:
WBC 12.7 10^3/uL (4.8-10.8) H 06/03/24 07:36
RBC 4.52 10^6/uL (4.20-5.40) 06/03/24 07:36
Hgb 14.1 g/dL (12.0-16.0) 06/03/24 07:36
Hct 40.4 % (37.0-47.0) 06/03/24 07:36
Plt Count 332 10^3/uL (130-400) D 06/03/24 07:36
Sodium 130 mmol/L (135-145) L 06/03/24 07:36
Potassium 5.4 mmol/L (3.5-5.1) H 06/03/24 07:36
Chloride 97 mmol/L (98-107) L 06/03/24 07:36
Carbon Dioxide 17 mmol/L (22-30) L 06/03/24 07:36
BUN 89 mg/dl (7-17) H 06/03/24 07:36
Creatinine 2.5 mg/dL (0.6-1.0) H 06/03/24 07:36
eGFR 19.69 06/03/24 07:36
Glucose 101 mg/dl (70-99) H 06/03/24 07:36
Calcium 8.8 mg/dl (8.4-10.2) 06/03/24 07:36
Qxa-D-Dvlsyjehapf Pept 851 pg/ml 05/31/24 16:38
Albumin 3.1 g/dl (3.5-5.0) L 06/03/24 07:36
Physical Exam
-
Vital Signs:
Vital Signs
Temp Pulse Resp BP Pulse Ox
97.8 F 110 18 108/69 98
06/03/24 07:54 06/03/24 07:54 06/03/24 07:54 06/03/24 07:54 06/03/24 08:21
Cardiovascular:: Regular rate and rhythm
Respiratory:: Bilateral: Coarse
Lung Excursion:: Abnormal
Abdomen:: Nontender and Soft
Extremity Edema:: +2: Bilateral:
Watson Catheter: No
[2024-06-03 11:30] VITALS: BMI 22.8
--- NOTE | 2024-06-03 11:41 | CM ---
Per activity documentation, patient has been an assist of 2 with toileting and transfers. Will review additional information as it becomes available and discuss indications on behalf of the medical staff for discharge.
Plan: Case management will continue to follow and assist with discharge planning. Possible SNF.
[2024-06-03 11:43] VITALS: BP 112/78; BP 118/74; PULSE 109; PULSE 110
[2024-06-03] MEDS: STERILE WATER FOR INJECTION 10 ML IV (12:23)
[2024-06-03] MEDS: ROCEPHIN 1000 MG IV (12:23)
--- NOTE | 2024-06-03 12:54 | W.PN.HOSP.TC ---
Today's Communication/Plan
-
May need right nephrostomy tube
Assessment / Plan
Assessment / Plan
Impression:
Patient is 70 years old with history of breast cancer status post lumpectomy and radiation came to the ER with shortness of breath, bilateral lower extremity edema for last 3 weeks found to have large pleural effusion status post thoracentesis
cardiology consulted, echocardiogram shows:
Very limited study.
Left ventricular ejection fraction is 60-65%, by visual assessment.
Normal right ventricular size and function.
Small to moderate anterior pericardial effusion without evidence of hemodynamic
compromise.
Repeat chest x-ray today done shows
1. LARGE LEFT HYDROPNEUMOTHORAX involving 50% of the lung volume.
2. Severe left lower lobe airspace consolidation.
3. Moderate-sized right pleural effusion.
4. MULTIFOCAL BLASTIC OSSEOUS METASTATIC DISEASE.
5. Severe pectus excavatum deformity.
CT abdomen was done confirm hydronephrosis, urology consult
Assessment/plan
Acute CHF Exacerbation:
Acute diastolic CHF, no history of congestive heart failure
Patient presented with shortness of breath and lower extremity
BNP level is elevated at 851
Troponin level is 0.027
Was given IV Lasix 40 mg daily, caution with hypotension
Daily weight.
Strict I's and O's.
Consulted cardiology.
Continue satellite project site monitor
06/02
echocardiogram shows:
Very limited study.
Left ventricular ejection fraction is 60-65%, by visual assessment.
Normal right ventricular size and function.
Small to moderate anterior pericardial effusion without evidence of hemodynamic
compromise.
Bilateral lower extremity ultrasound shows no DVT.
Hold Lasix for now with worsening creatinine.
Bilateral pleural effusion
CT chest:
There is a large left pleural effusion with associated collapse of the left lower lobe and partial collapse of the left upper lobe. There is a small/moderate right-sided pleural effusion with adjacent compressive atelectasis.
Scattered small sclerotic foci involving the thoracic spine and sternum, nonspecific although the setting of malignancy metastasis are possible.
Diffuse anasarca.
Fractures of the anterior left second, third and fourth ribs which appear subacute
Status post left-sided thoracentesis with removal of 1400 cc.
Fluid studies pending--- history of breast cancer rule out malignant pleural effusion
Small left pneumothorax, follow-up chest x-ray
06/02
Repeat chest x-ray today done shows
1. LARGE LEFT HYDROPNEUMOTHORAX involving 50% of the lung volume.
2. Severe left lower lobe airspace consolidation.
3. Moderate-sized right pleural effusion.
4. MULTIFOCAL BLASTIC OSSEOUS METASTATIC DISEASE.
5. Severe pectus excavatum deformity.
Discussed with daughter at bedside, will get oncology consult.
Concern for metastatic disease
CT chest, x-ray chest shows concern for metastatic disease.
Pending pleural fluid cytology
Oncology consulted
Hematemesis
Patient had large brownish emesis.
Seen by GI.
Continue pantoprazole IV
Hemoglobin stayed stable
Postprocedure hypotension
Continue to monitor
Consider midodrine-cannot give IV fluid
Consider midodrine
Purple discoloration of bilateral
Patient stated that this been there for last 2 days.
Palpable pulses bilaterally.
Continue to monitor
arterial studies came back shows no focal stenosis
Acute renal failure
Creatinine slightly improved
hold lisinopril for now
Caution with diuresing
consult nephrology
06/02
Hold Lasix
06/03
CT abdomen shows moderate hydronephrosis
Urology consulted
Right hydronephrosis
Discussed with urology
Recommending IR consult for right nephrostomy tube
Weight loss
- malignancy suspected, depression suspected per history from daughter
- Added ensure
Skin findings - hard skin nodules on the neck bilaterally. Non tender. No discharges. Has been present for a long time per patient
- consider outpatient skin biopsy
CODE STATUS: Full code
DVT prophylaxis: Heparin
Diet: Cardiac diet
Family communication: Discussed with daughter Margarita at bedside
Total time spent on today's encounter was 65 minutes which included time spent in counseling the patient/family regarding diagnosis and treatment plan as listed above, goals of care, and symptom management. Case was discussed with nursing staff,
specialists, and care coordinators/case management. All labs and imaging personally reviewed by me. Remainder the time spent in detailed review of previous records, lab data, imaging, and other medical provider documentation.
Anticipated Discharge: > 48 hours
Subjective/Interval History
-
Date of Service: June 03, 2024
Patient seen and examined at bedside, patient still feeling tired, still feeling short of breath.
Had CT abdomen done today.
Objective Data
-
Labs:
Laboratory Results
06/03/24
07:36
WBC 12.7 H
Hgb 14.1
Hct 40.4
Plt Count 332 D
Sodium 130 L
Potassium 5.4 H
Chloride 97 L
Carbon Dioxide 17 L
BUN 89 H
Creatinine 2.5 H
Glucose 101 H
Calcium 8.8
Total Bilirubin 1.2
AST 19
ALT 13
Alkaline Phosphatase 68
Vital Signs:
Vital Signs
Temp Pulse Resp BP Pulse Ox
97.8 F 110 18 108/69 96
06/03/24 11:43 06/03/24 07:54 06/03/24 11:43 06/03/24 07:54 06/03/24 11:43
I&O
06/02/24 06/03/24 06/04/24
06:59 06:59 06:59
Intake Total 240 / 240 730 / 730
Balance 240 / 240 730 / 730
Physical Exam
-
General: Respiratory Distress, Appears in Distress and Appears Chronically Ill
HEENT: Normocephalic, Atraumatic, Moist Mucous Membranes, No Ptosis, PERRLA and Nose Appears Normal
Respiratory: Rales, Rhonchi, Crackles and Accessory Resp Muscle Use
Cardiac: Regular Rhythm, S1/S2 and Tachycardic
Breast: Deferred by me
GI: Soft, Nontender, Nondistended and Normal Bowel Sounds
Genito-urinary: No Costovertebral Tender
Musculoskeletal: Edema, Right Lower Extrem and Edema, Left Lower Extrem
Skin: Other (Bilateral hands purplish discoloration)
Neuro: Awake, Alert, Oriented, AO x 3 and No Motor Deficits
Psych: Depressed
Data Reviewed
-
Diagnostic Radiology: Image personally visualized and interpreted and Report Reviewed by me
CT Scan: Image personally visualized and interpreted and Report Reviewed by me
Ultrasound: Image personally visualized and interpreted and Report Reviewed by me
MRI: Image personally visualized and interpreted and Report Reviewed by me
Medical Tests (Nuc Med, Echo etc): Image personally visualized and interpreted and Report Reviewed by me
Labs: Labs Reviewed by me
Old Records: Reviewed
--- NOTE | 2024-06-03 13:00 | PTCARENOTE ---
Watson # 16 F placed without difficulty; patent small amts komal urine. Statlok applied to Rt thigh. pt santo procedure well. Will continue to monitor output.
--- NOTE | 2024-06-03 13:50 | W.PN.UPDATE ---
Update Note
Progress Note Update
Hemoglobin stable. No evidence of active GI bleeding. She does appear to have a large fecal burden on CT scan, can start miralax 17 g daily. She did not have any nausea at time of evaluation this morning. Recommend continuing with PPI and monitoring
H&H. No plans for EGD at this time as she has many other acute issues that are currently being worked up. GI will sign off, please call GI back if concerns for active bleeding.
[2024-06-03 15:57] VITALS: BP 110/70
--- NOTE | 2024-06-03 16:35 | PTCARENOTE ---
Pt AAO x3, KING weakly; slightly TUNUNAK. Pleasant and cooperative; states she 'feels better today'. VSS. Pt has generalized edema. On room air- pulse ox 97%, pt with (+) CASTRO/tachypnea; occ non-productive cough. Abd soft, appetite poor, taking only
small amts fluids PO. Passing flatus; (-) BM. Watson patent small amts komal urine. Resting in bed at present; daughter at bedside. Will continue to monitor.
--- NOTE | 2024-06-03 16:43 | W.PN.UPDATE ---
Update Note
Progress Note Update
H/o metastatic breast cancer w/ pleural effusions s/p thoracentesis
MIKEY
Right hydronephrosis (noted on RACHAEL)
CTAP w/o IV contrast ordered yesterday but not able to be completed due to patient's clinical status.
06/03: CTAP w/o IV contrast => moderate right hydronephrosis, possible moderate retroperitoneal lymphadenopathy
Cr 2.5 (progressive rise)
Recommendations:
- Advised IR consult for consideration of right PCN placement due to concern for obstructive uropathy secondary to malignant extrinsic compression from RP lymphadenopathy
- retrograde ureteral stent placement not advised due to need for general anesthesia (high risk w/ current cardiopulmonary issues) and high likelihood of stent failure from extrinsic compression
D/w Hospitalist - will see if thoracentesis and PCN placement can be coordinated together per IR.
[2024-06-03 19:00] VITALS: BP 120/83
[2024-06-03] MEDS: LIDOCAINE 4% PATCH 1 PATCH TOPICAL (20:33)
[2024-06-03] MEDS: TYLENOL 650 MG PO (20:46)
[2024-06-03 23:19] VITALS: BP 104/66
[2024-06-04] VITALS (20 sets, daily range): BP systolic 61–120; BP diastolic 27–81; PULSE 108; O2SAT 94–95; BMI 22.5
[2024-06-04 07:12] LABS: Blood Urea Nitrogen 94 mg/dl (7-17); Calcium 9.1 mg/dl (8.4-10.2); Carbon Dioxide 18 mmol/L (22-30); Chloride 100 mmol/L (98-107); Estimated Creatinine Clearance 13 ml/min; Glucose 117 mg/dl (70-99); Potassium 4.8 mmol/L (3.5-5.1); Sodium 132 mmol/L (135-145); eGFR 16.48
--- NOTE | 2024-06-04 08:37 | W.PN.UPDATE ---
Update Note
Progress Note Update
H/o metastatic breast cancer w/ pleural effusions s/p thoracentesis
MIKEY
Right hydronephrosis w/ suspected malignant extrinsic compression from RP LAD
CTAP w/o IV contrast ordered yesterday but not able to be completed due to patient's clinical status.
/: CTAP w/o IV contrast => moderate right hydronephrosis, possible moderate retroperitoneal lymphadenopathy
Cr 2.5 = 2.9 (continued rise)
Extensive discussion via telephone had w/ daughter 35 min re: high risk situation of her mother - she would require general anesthesia for retrograde stent placement attempt which has potential for failure due to extrinsic compression.
There is continued serologic and radiographic evidence of obstructive uropathy.
Discussed w/ IR - given her anasarca, PCN placement could be challenging but feasible if performed at time of her thoracentesis.
Recommendations:
- Advised IR placement of of right PCN placement
- retrograde ureteral stent placement not advised due to need for general anesthesia (high risk w/ current cardiopulmonary issues) and high likelihood of stent failure from extrinsic compression
- C discussion w/ patient, daughter, and care team today
D/w IR.
D/w Hospitalist team.
D/w patient's daughter.
--- NOTE | 2024-06-04 08:47 | W.PN.CD ---
Today's Communication / Plan
-
Monitoring Cr
IV diuresis if able
Impression / Plan
-
HFpEF? LE edema anasarca
- Echo below: small pericardial effusion no evidence of hemodynamic compromise
- Diuresis per nephrology worsening Cr
SOB s/p throacentesis:
-pleural effusions noted on imaging as detailed below (L > R) s/p thora 1.5 L removed
- Breathing somewhat improved
Hx Breast cancer:
-Chest imaging raises possibility of metastasis- work-up/management per primary team
Abnormal creatinine, hyponatremia:
-worsening Cr
- nephrology seeing
HTN:
-stable
-BP low
Data:
Chest CT scan without contrast: large left pleural effusion with associated collapse of the left lower lobe and partial collapse of the left upper lobe. There is a small/moderate right-sided pleural effusion with adjacent compressive atelectasis.
Scattered small sclerotic foci involving the thoracic spine and sternum, nonspecific although the setting of malignancy metastasis are possible. Diffuse anasarca. Fractures of the anterior left second, third and fourth ribs which appear subacute.
Subjective: JOELO patient feels a little better
Echo June 03 2024: CONCLUSIONS
TDS.
Normal LV size and function with no regional wall motion abnormalities.
LVEF is 65-70% by visual estimation.
Normal right ventricular size and function.
No obvious valvular disease.
Small pericardial effusion without evidence of hemodynamic compromise.
Compared to prior from June 01, 2024, on [id number] comparison pericardial
effusion appears slightly smaller otherwise, no significant change.
Echo June 01 2024: CONCLUSIONS
Very limited study.
Left ventricular ejection fraction is 60-65%, by visual assessment.
Normal right ventricular size and function.
Small to moderate anterior pericardial effusion without evidence of hemodynamic
compromise.
No prior study available for comparison.
Physical Exam
Vital Signs/Labs
Vital Signs
Temp Pulse Resp BP Pulse Ox
97.5 F 105 16 102/67 98
06/04/24 07:41 06/04/24 07:41 06/04/24 07:41 06/04/24 07:41 06/04/24 07:41
06/03/24 06/04/24 06/05/24
06:59 06:59 06:59
Actual Weight 124 lb 9.825 oz 123 lb
06/03/24 07:36
06/04/24 05:59
PT 13.6 Sec (11.4-14.6) 06/01/24 06:56
INR 1.01 06/01/24 06:56
Magnesium 2.4 mg/dl (1.6-2.3) H 06/01/24 08:48
Triglycerides 173 mg/dl (10-149) H 06/01/24 06:56
LDL Cholesterol, Calc 157 mg/dl 06/01/24 06:56
VLDL Cholesterol, Calc 34 mg/dl (0-30) H 06/01/24 06:56
HDL Cholesterol 72 mg/dl 06/01/24 06:56
05/31/24
16:38
Opl-W-Mdowhqwlsvy Pept 851
Physical Exam
Constitutional: No acute distress and Comfortable
EENT: Anicteric
Cardiovascular: Rhythm & rate is regular and Pedal edema present (anasarca )
Respiratory: Respiratory effort normal and Lungs clear to auscul.
GI: Soft
Neuro/Psych: AO x 3
Data Reviewed
-
Date of Service: June 04, 2024
Medical Decision Making: Reviewed Test Results
EKG: Tracing Personally Visualized and interpreted (sr)
Echo: Tracing Personally Visualized and interpreted and Report Reviewed by me
Labs: Labs Reviewed by me
[2024-06-04] MEDS: PROTONIX IV 40 MG IV (08:52)
[2024-06-04] MEDS: NSS (PRESERVATIVE FREE) 10 ML IV (08:53)
--- NOTE | 2024-06-04 09:55 | W.PN.HOSP.TC ---
Addendum entered and electronically signed by Earnestine Talbot MD 06/04/24 13:52:
Stage 2 sacral pressure injury, POA.
Original Note:
Today's Communication/Plan
-
Thoracentesis, started albumin and Midodrine
Assessment / Plan
Assessment / Plan
Impression:
Patient is 70 years old with history of breast cancer status post lumpectomy and radiation came to the ER with shortness of breath, bilateral lower extremity edema for last 3 weeks found to have large pleural effusion status post thoracentesis
cardiology consulted, echocardiogram shows:
Very limited study.
Left ventricular ejection fraction is 60-65%, by visual assessment.
Normal right ventricular size and function.
Small to moderate anterior pericardial effusion without evidence of hemodynamic
compromise.
Repeat chest x-ray today done shows
1. LARGE LEFT HYDROPNEUMOTHORAX involving 50% of the lung volume.
2. Severe left lower lobe airspace consolidation.
3. Moderate-sized right pleural effusion.
4. MULTIFOCAL BLASTIC OSSEOUS METASTATIC DISEASE.
5. Severe pectus excavatum deformity.
CT abdomen was done confirm hydronephrosis, urology consult
-Function continued worsening, started albumin and midodrine.
IR consult for right-sided thoracentesis
Assessment/plan
Acute CHF Exacerbation:
Acute diastolic CHF, no history of congestive heart failure
Patient presented with shortness of breath and lower extremity
BNP level is elevated at 851
Troponin level is 0.027
Was given IV Lasix 40 mg daily, caution with hypotension
Daily weight.
Strict I's and O's.
Consulted cardiology.
Continue cardiac cath lab technologist
06/02
echocardiogram shows:
Very limited study.
Left ventricular ejection fraction is 60-65%, by visual assessment.
Normal right ventricular size and function.
Small to moderate anterior pericardial effusion without evidence of hemodynamic
compromise.
Bilateral lower extremity ultrasound shows no DVT.
Hold Lasix for now with worsening creatinine.
4
Albumin and midodrine started
Bilateral pleural effusion
CT chest:
There is a large left pleural effusion with associated collapse of the left lower lobe and partial collapse of the left upper lobe. There is a small/moderate right-sided pleural effusion with adjacent compressive atelectasis.
Scattered small sclerotic foci involving the thoracic spine and sternum, nonspecific although the setting of malignancy metastasis are possible.
Diffuse anasarca.
Fractures of the anterior left second, third and fourth ribs which appear subacute
Status post left-sided thoracentesis with removal of 1400 cc.
Fluid studies pending--- history of breast cancer rule out malignant pleural effusion
Small left pneumothorax, follow-up chest x-ray
06/02
Repeat chest x-ray today done shows
1. LARGE LEFT HYDROPNEUMOTHORAX involving 50% of the lung volume.
2. Severe left lower lobe airspace consolidation.
3. Moderate-sized right pleural effusion.
4. MULTIFOCAL BLASTIC OSSEOUS METASTATIC DISEASE.
5. Severe pectus excavatum deformity.
Discussed with daughter at bedside, will get oncology consult.
06/04
Right-sided thoracentesis ordered
Concern for metastatic disease
CT chest, x-ray chest shows concern for metastatic disease.
Pending pleural fluid cytology
Oncology consulted
Hematemesis
Patient had large brownish emesis.
Seen by GI.
Continue pantoprazole IV
Hemoglobin stayed stable
Postprocedure hypotension
Continue to monitor
Consider midodrine-cannot give IV fluid
Consider midodrine
Purple discoloration of bilateral
Patient stated that this been there for last 2 days.
Palpable pulses bilaterally.
Continue to monitor
arterial studies came back shows no focal stenosis
Acute renal failure
Creatinine slightly improved
hold lisinopril for now
Caution with diuresing
consult nephrology
06/02
Hold Lasix
06/03
CT abdomen shows moderate hydronephrosis
Urology consulted
06/04
Worsening creatinine.
Discussed with IR and urology.
Right nephrostomy tube was suggested but patient is not stable enough for us to proceed
Right hydronephrosis
Discussed with urology
Recommending IR consult for right nephrostomy tube, patient is not stable enough for us to proceed
Weight loss
- malignancy suspected, depression suspected per history from daughter
- Added ensure
Skin findings - hard skin nodules on the neck bilaterally. Non tender. No discharges. Has been present for a long time per patient
- consider outpatient skin biopsy
CODE STATUS: Full code
DVT prophylaxis: Heparin
Diet: Cardiac diet
Family communication: Discussed with daughter Margarita at bedside
Total time spent on today's encounter was 65 minutes which included time spent in counseling the patient/family regarding diagnosis and treatment plan as listed above, goals of care, and symptom management. Case was discussed with nursing staff,
specialists, and care coordinators/case management. All labs and imaging personally reviewed by me. Remainder the time spent in detailed review of previous records, lab data, imaging, and other medical provider documentation.
Anticipated Discharge: > 48 hours
Subjective/Interval History
-
Date of Service: June 04, 2024
Patient looks more tired today, worsening kidney function, discussed with interventional radiology, will obtain right-sided thoracentesis.
Discussed with nephrology, will start albumin and midodrine.
Objective Data
-
Labs:
Laboratory Results
06/04/24
05:59
Sodium 132 L
Potassium 4.8
Chloride 100
Carbon Dioxide 18 L
BUN 94 H
Creatinine 2.9 H
Glucose 117 H
Calcium 9.1
Vital Signs:
Vital Signs
Temp Pulse Resp BP Pulse Ox
97.5 F 105 16 102/67 98
06/04/24 07:41 06/04/24 07:41 06/04/24 07:41 06/04/24 07:41 06/04/24 07:41
I&O
06/03/24 06/04/24 06/05/24
06:59 06:59 06:59
Intake Total 730 / 730 790 / 790
Output Total 200 / 200
Balance 730 / 730 590 / 590
Physical Exam
-
General: Respiratory Distress, Appears in Distress and Appears Chronically Ill
HEENT: Normocephalic, Atraumatic, Moist Mucous Membranes, No Ptosis, PERRLA and Nose Appears Normal
Respiratory: Rales, Rhonchi, Crackles and Accessory Resp Muscle Use
Cardiac: Regular Rhythm, S1/S2 and Tachycardic
Breast: Deferred by me
GI: Soft, Nontender, Nondistended and Normal Bowel Sounds
Genito-urinary: No Costovertebral Tender
Musculoskeletal: Edema, Right Lower Extrem and Edema, Left Lower Extrem
Skin: Other (Bilateral hands purplish discoloration)
Neuro: Awake, Alert, Oriented, AO x 3 and No Motor Deficits
Psych: Depressed
Data Reviewed
-
Diagnostic Radiology: Image personally visualized and interpreted and Report Reviewed by me
CT Scan: Image personally visualized and interpreted and Report Reviewed by me
Ultrasound: Image personally visualized and interpreted and Report Reviewed by me
MRI: Image personally visualized and interpreted and Report Reviewed by me
Medical Tests (Nuc Med, Echo etc): Image personally visualized and interpreted and Report Reviewed by me
Labs: Labs Reviewed by me
Old Records: Reviewed
--- NOTE | 2024-06-04 10:57 | W.PN.ONC2 ---
Today's Communication / Plan
-
.
Impression
Impression
p/w SOB, increased LE edema, and large pleural effusions L>R
suspected HFpEF
suspected metastatic disease given NEW sclerotic and blastic lesions on the spine with hx of breast cancer w/ previous recurrence s/p lymph node resection.
s/p thora 1.5 L removed
large left hydropneumothorax on CXR 06/02
Hematemesis -no anemia
MIKEY
Right hydronephrosis w/ suspected malignant extrinsic compression from RP LAD
Ecoli UTI
Plan
Plan
- follow for pleural fluid cytology. If malignant, can pursue further testing to evaluate Estrogen receptor sensitivity and possible hormonal medications if she is amenable, though she does not seem keen on chemotherapy
-urology recommends IR placement of R PCN
-diuresis per cardiology/nephrology
-abx per primary service
-No plans for EGD at this time as she has many other acute issues on PPI
Subjective/Objective
Subjective
fatigue
denies pain or SOB
Vital Signs:
Vital Signs
Temp Pulse Resp BP Pulse Ox
97.5 F 105 16 102/67 98
06/04/24 07:41 06/04/24 07:41 06/04/24 07:41 06/04/24 07:41 06/04/24 07:41
Lab Results:
Laboratory Data
WBC 12.7 10^3/uL (4.8-10.8) H 06/03/24 07:36
Hgb 14.1 g/dL (12.0-16.0) 06/03/24 07:36
Plt Count 332 10^3/uL (130-400) D 06/03/24 07:36
PT 13.6 Sec (11.4-14.6) 06/01/24 06:56
INR 1.01 06/01/24 06:56
eGFR 16.48 06/04/24 05:59
Physical Exam
appears cachectic
breathing unlabored
left breast peau d' orange appearance
b/l LE pitting edema. anasarca
[2024-06-04] MEDS: ZITHROMAX INFUSION 250 IV (10:59)
[2024-06-04] MEDS: FLEXBUMIN 100 IV (12:33)
--- NOTE | 2024-06-04 12:46 | PN.CDI ---
CDI
- -
CDI:
Physician Documentation Request
Admit Date: 05/31/24 20:24
Dear Doctor Dahiana,
Patient admitted with acute CHF exacerbation.
/ Nursing skin assessment, 'Stage 2 sacral pressure injury, POA.'
Physician documentation of the type and location of wounds is required for compliant documentation. Based on the above clinical findings and your assessment, please provide the following in your progress note:
Type (etiology) of ulcer/wound:
- Pressure (decubitus) ulcer
- Other
- Unable to determine
For a pressure ulcer, please also include the stage* of the ulcer:
- Stage 1 - Skin intact, non-blanchable redness
- Stage 2 - Partial thickness loss of dermis, includes intact or open blister
- Stage 3 - Full thickness tissue not including bone, tendon or muscle
- Stage 4 - Full thickness tissue loss, including exposed bone, tendon or muscle
- Unstageable - Full thickness loss in which the base of the ulcer is covered by slough (yellow, flood, alvarado, green or brown) and/or eschar (flood, brown or black) in the wound bed.
- Unable to determine
Use of terms such as suspected, likely, concern for, or probable (associated with a specific diagnosis that is being evaluated, monitored, or treated as if it exists) are acceptable and can be coded in the inpatient setting, when documented at the
time of discharge.
Thank you,
Aubree LOPEZ,RN,CCDS
CDI Specialist
Available via [place] text
Please use your independent medical judgment in providing your response.
*Source: National Pressure Ulcer Advisory Panel (NPUAP)
[2024-06-04] MEDS: ProAmatine 10 MG PO (12:50)
--- NOTE | 2024-06-04 13:02 | W.PN.UPDATE ---
Update Note
Progress Note Update
- Pt declined R thora.
- CT reviewed. PCN placement deferred at the moment. Placement would also entail risk given respiratory issues, proning patient, and extensive third spacing/anasarca. Pt would need R thora and possible left chest tube placed before attempting
--- NOTE | 2024-06-04 13:02 | PTCARENOTE ---
Patient with metastatic breast cancer. Patient refusing thoracentesis today. MD aware. Patient states that she is 'tired'. MD notified that daughter is at bedside. MD had lengthy conversation regarding treatment options and palliative care consult
placed. Daughter and patient state they need some time to think about options. Patient states she may be agreeable to thora tomorrow. Patient is aware that this procedure will help her with symptoms. IR made aware that patient would not be having
procedure today. Confirmed with MD that he still wanted to proceed with albumin. Albumin hung and is infusing. Patient out to recliner and visiting with daughter at this time. Denies pain or other needs.
[2024-06-04 14:25] LABS: Glucose - Point of Care 113 mg/dl (70-99)
[2024-06-04] MEDS: ROCEPHIN 1000 MG IV (14:26)
[2024-06-04] MEDS: STERILE WATER FOR INJECTION 10 ML IV (14:26)
--- NOTE | 2024-06-04 15:02 | PTCARENOTE ---
Patient's heart rate noted to be in the 160s with SVT on monitor. Attempted vagal maneuvers without success in breaking SVT. Patient was sitting in chair with complaints of dizziness. BP 70/30s. Patient assisted back to bed and EKG done. MD
notified. Fluid bolus started - 1 liter of NSS over one hour. Rapid response called. BP climbed up to 112/60, but then quickly declined back to systolic of 70s. Remains hypotensive. Amio ordered and awaiting from pharmacy. Patient's creat 2.9 today
with decreased urine output. Patient has palliative care consult pending. Patient to go to ICU. RN Ambrocio accepting patient and at the bedside. Heart rate remains in 160s.
[2024-06-04] MEDS: CORDARONE 103 MG IV (15:07)
[2024-06-04 15:13] LABS: Hematocrit 37.6 % (37.0-47.0); Hemoglobin 13.3 g/dL (12.0-16.0); Mean Corp Hgb Conc. 35.4 g/dL (33.0-37.0); Mean Corpuscular Hgb 31.6 pg (27.0-31.0); Mean Corpuscular Volume 89.3 fL (81.0-99.0); Mean Platelet Volume 9.7 fL (7.4-10.4); Platelet Count 281 10^3/uL (130-400); Red Blood Cell Count 4.21 10^6/uL (4.20-5.40); Red Cell Dist. Width 16.1 % (11.5-14.5); White Blood Cell Count 9.7 10^3/uL (4.8-10.8)
[2024-06-04] MEDS: CORDARONE 518 MG IV (15:14)
[2024-06-04 15:21] LABS: Lactic Acid 1.4 mmol/L (0.7-2.0)
--- NOTE | 2024-06-04 15:32 | W.PN.NEPH.PH ---
Addendum entered and electronically signed by Camacho Yeung DO 06/04/24 16:41:
35 minutes critical care time spent with patient
Discussed with ICU attending
Original Note:
Today's Communication / Plan
-
Patient transferred to ICU due to SVT with hemodynamic instability
MIKEY continues to worsen
Maintain Watson
Patient did not wish to pursue right nephrostomy tube for obstruction
I do not believe patient is an appropriate candidate for dialysis given limited interventions and hemodynamic instability
Assessment/Plan
-
IMP:
SOB and Volume overload
BIlat pleural effusion left >right
s/p Thoracentesis 1.45lit and mild pneumothx post
E. coli UTI (blood cultures negative)
MIKEY
Weightloss
elevated LFTs
Skin findings - hard skin nodules on the neck bilaterally.
Scattered small sclerotic foci involving the thoracic spine and sternum, nonspecific although the setting of malignancy metastasis are possible on CT.
Plan:
A/w SOB, noted anasarca and bilat pleural effusion
Patient transferred to ICU in setting of hemodynamic instability
MIKEY-no baseline cr available , cr cont to increase to 2.9, BUN>90
Urine output around 200 cc
Urology recommended right percutaneous nephrostomy tube which was aborted
Patient profoundly hypotensive
UA -UTI sample, U na low 7-suggest cardiorenal/prerenal
U PCR only 100mg/gm of cr unlikely nephrotic
echo normal EF but small to mod pericardial effusion
Renal ultrasound and CT scan notes moderate Right intrarenal collecting system dilatation consistent with hydronephrosis kidney sizes small but symmetrical
maintain Watosn catheter
Etiology of hypotension not discerned: Is not related to pericardial effusion?, Infection from underlying E. coli UTI, pneumothorax...
metabolic acidosis persist
mild hyponatremia likely from hypervolemia-maintain FR
Antibiotics renally dosed
CXR noted left pneumothorax post procedure 06/01
suspect bone mets-Onc consulted, pleural fluid cytology pending
labs in am
d/w pt , cards , nursing and primary
Patient is critically ill with worsening renal failure and hemodynamic instability
Patient is now DNR
Patient states that she does not want aggressive interventions with tubes
There is nothing else I can provide at this point
if she does not wish intervention for hydronephrosis there is no role for dialysis
She would not be a suitable dialysis candidate due to her hemodynamic instability
Her SVT is being managed with amiodarone and at the direction of cardiology
IV fluids are currently running to support blood pressure
I will defer any pressor requirements to cardiology
-
-
Date of Service: June 04, 2024
CC / HPI / ROS
-
Chief Complaint:
MIKEY
History of Present Illness:
MIKEY and hyponatremia worsening
Hyperkalemia noted
Persistent metabolic acidosis
Patient declined thoracentesis and percutaneous nephrostomy tube
Hemodynamically labile now on amiodarone
Patient transferred to ICU for SVT episode on floor with hemodynamic instability afternoon of 06/04/2024
Review of Systems:
still sob, FTT
poor po intake
no pain
Watson
Labs
-
Labs:
WBC 9.7 10^3/uL (4.8-10.8) 06/04/24 15:00
RBC 4.21 10^6/uL (4.20-5.40) 06/04/24 15:00
Hgb 13.3 g/dL (12.0-16.0) 06/04/24 15:00
Hct 37.6 % (37.0-47.0) 06/04/24 15:00
Plt Count 281 10^3/uL (130-400) 06/04/24 15:00
eGFR 16.48 06/04/24 05:59
Albumin 3.1 g/dl (3.5-5.0) L 06/03/24 07:36
Physical Exam
-
Vital Signs:
Vital Signs
Temp Pulse Resp BP Pulse Ox
98.1 F 100 16 100/60 94
06/04/24 12:30 06/04/24 12:30 06/04/24 11:00 06/04/24 12:50 06/04/24 12:30
Cardiovascular:: Regular rate and rhythm
Respiratory:: Bilateral: Coarse
Lung Excursion:: Abnormal
Abdomen:: Nontender and Soft
Extremity Edema:: +2: Bilateral:
Watson Catheter: Yes
[2024-06-04 15:35] LABS: NT-proBNP 2040 pg/ml
[2024-06-04] MEDS: NSS 500 IV ×2 (16:00→16:30)
--- NOTE | 2024-06-04 16:29 | PTCARENOTE ---
Pt arrived to ICU post rapid response at 1540, pt had broke from SVT to SR until 1553, when she went back to SVT. Pt had received 1L NS, and another 500ml of NS bolus hung in ICU as per Dr Diallo. NS started now at 80 ml/hr as per Dr Diallo. PT
reported to have received amio bolus during rapid response, Amio drip infusing now at 1 mg/min. Dr Diallo in with pt and spoke with pt, of all treatment options. Pt presently chose to not have aggressive treatment, and made DNR as per her decision.
--- NOTE | 2024-06-04 16:39 | CON.INTV ---
Consultation
Consultation Request
Date/Time Consultation Requested: 06/04
Date/Time Consultation Performed: 06/04
Reason for Consultation: Critical care
Medical History
-
History of Present Illness:
History obtained from the chart, reviewing the case with primary service, reviewing medical records, patient, daughter, cousin and cousin's . Patient with complex medical history including breast cancer diagnosed in 2011 status post
radiation and left lumpectomy at that time, rx at [facility] ([place]). She had recurrence in 2018 and 2021 followed by repeated radiation. She had positive lymph nodes at that time. Patient did not get any chemotherapy (refused). Patient had
developed increased lower extremity swelling and shortness of breath which been going on for weeks to months. Upon arrival to ED, heart rate 102, breathing at 20, 97%. Patient per ED records that diffuse pitting edema, chest x-ray with large left
pleural effusion and right pleural effusion. Creatinine 1.8, baseline unclear. Patient was given Lasix and admitted for further workup. Hospital course reviewed. Patient underwent left thoracentesis 06/01 with 1.450 L removed. There was small
pneumothorax at the end with ex vacuo process. Patient had lower extremity Dopplers which were negative for DVT. Renal ultrasound showed small amount of ascites and moderate right hydronephrosis secondary to ureteral obstruction. Cardiology was
also consulted. Possible heart failure with echocardiogram showing normal biventricular function. Urology was consulted. CT abdomen was obtained 06/03 which showed moderate right hydronephrosis, moderate retroperitoneal adenopathy, and creatinine
progressively rising to 2.5. Interventional radiology was consulted for percutaneous nephrostomy tube placement. However given anatomy and anasarca, it was technically difficult without additional addressing of right pleural effusion.
Unfortunately patient refused right thoracentesis on the day of planned percutaneous nephrostomy placement. She was too tired. She then developed tachycardia with hypotension, received adenosine following rapid response, amiodarone, IV fluids.
This apparently happened shortly after receiving albumin infusion. Patient was transferred to ICU for further management. Upon arrival to ICU, heart rate in the 90s. We are asked to help from critical care standpoint
Presently, despite heart rate in the 150s, patient is comfortable on nonrebreather, 97%. Systolic pressure in the 80s. She denies chest pain, nausea, abdominal pain.
.
PMH: History of breast cancer with left lumpectomy radiation in 2012 with recurrence in 2019 followed by radiation following axillary lymph node dissection which was positive. Patient did not receive chemotherapy (refused). History of
hypertension.
Past Medical History
Past Medical History: None (See above)
Past Surgical History: None (See above)
Social History
Tobacco: Non-smoker
Alcohol: Former
Living: Alone
Employment: Retired
Environmental Exposures: Dogs at home
Family History
Family History: Other (No history of blood clots, lung cancer)
Allergies / Home Medications
Allergies
Allergy/AdvReac Type Severity Reaction Status Date / Time
blue dye Allergy Hives Verified 05/31/24 16:28
Penicillins Allergy Unknown Verified 05/31/24 16:28
Home Medications
�Medication �Instructions �Recorded �Confirmed �Last Taken �Type
acetaminophen 325 mg tablet 650 mg PO Q6HPRN PRN mild pain 05/31/24 05/31/24 05/30/24 History
(Tylenol)
calcium carbonate 500 mg PO DAILY Supplement 05/31/24 05/31/24 05/30/24 History
herbal drugs 1 tab PO DAILYPRN PRN constipation 05/31/24 05/31/24 Unknown History
lisinopril 20 mg tablet 20 mg PO DAILY Blood Pressure 05/31/24 05/31/24 05/30/24 History
vitamin A-vitamin C-vit E-min 1 tab PO DAILY Supplement 05/31/24 05/31/24 05/30/24 History
tablet
Review of Systems
-
All other systems: Negative unless noted
Vitals / Labs / Diagnostic Testing
Vital Signs
Temp Pulse Resp BP Pulse Ox
98.1 F 100 16 100/60 99
06/04/24 12:30 06/04/24 12:30 06/04/24 11:00 06/04/24 12:50 06/04/24 16:18
Lab Data
06/04/24 15:00
Microbiology
06/01/24 10:53 Pleural Fluid Body Fluid Culture - Final
No Growth After 72 Hours
06/01/24 10:53 Pleural Fluid Gram Stain - Final
05/31/24 22:49 Urine Urine Culture - Final
Escherichia coli
Diagnostic Testing:
Physical Exam
-
HEENT: Normocephalic, Anicteric, Other (Cachectic) and Other (Kyphoscoliosis)
Cardiovascular: S1/S2, Regular Rhythm (Tachycardia), Murmur (n), Rub, Peripheral Edema (n) and Other (Mild peripheral cyanosis)
Respiratory: Wheeze (n), Rales (n), Rhonchi (n) and Other (Decreased breath sounds left side, no crepitus)
GI: Soft, Non Distended and Non Tender
Neurology: Awake, Alert, Oriented and No Motor Deficits (Moves all extremities, generally weak)
Skin: Other (Peripheral cyanosis, distal extremities cool)
General: Comfortable
Assessment
-
73-year-old female with history of metastatic breast cancer, diagnosed 2011 followed by left lumpectomy radiation, recurrence in 2019 with axillary adenopathy, radiation 2019, no chemotherapy at patient request, now presents with months of
progressive lower extremity swelling, shortness of breath. Underwent left thoracentesis, likely left trapped lung. Patient found to have progressive renal insufficiency, requiring percutaneous nephrostomy tube due to suspected extrinsic
compression from adenopathy. Patient refused thoracentesis to facilitate percutaneous nephrostomy earlier today. Then developed tachycardia with hypotension, SVT. Received adenosine, amiodarone transferred to ICU for further management
Acute hypotension
Suspect multifactorial
Sepsis, cardiogenic with SVT/tachycardia
Acute renal insufficiency, progressive
Obstructive uropathy, secondary to retroperitoneal adenopathy suspected
Left hydropneumothorax, suspected trapped lung
Status post left thoracentesis 1.4 L drained
SVT, tachycardia
On amiodarone
Metastatic breast cancer diagnosed 2011
Patient refused chemotherapy in the past
Not keen on chemotherapy based on oncology correspondence
Left mastectomy/radiation 2011
Recurrence 2018 with axillary adenopathy, additional radiation therapy
Cachexia
History of hypertension
Plan/recommendations
At this time, patient with extremely complex medical history
Unfortunately, significant family dynamic also present.
Apparently patient has not been letting her daughter know how she is doing regarding the status of her malignancy (per pt)
Daughter is in somewhat shock understanding the extent of her medical problems
First discussed and obtained history from daughter and family members. At end of conversation asked about patient wishes, advanced directive. Daughter states she has not had this conversation with her mother. Daughter also stated that she does
not feel comfortable having this conversation with her mother Asked daughter if she would like me to review this with the patient and daughter was appreciative of this as was family.
Then I obtained history from patient. Patient made it clear at 2 different discussions with me that she would not want to be aggressively resuscitated, requested no mechanical ventilation/intubation, no CPR
This was done twice, in the presence of nursing
The second time, patient did request being comfortable
When returned to the family to review patient decision, daughter became very angry, accusing me of 'this is what happened to my father' and walked away. Other family members remained. Other family members confirmed that patient would not want
aggressive management. They also confirmed that daughter likely not aware pts medical situation as 'she was protecting her'
I reviewed above discussion with the patient. This was the second time I had the discussion with her regarding comfort measures versus aggressive measures. Patient is aware of the progressive nature of her cancer and does not want aggressive
measures. When asked if the patient had been in discussion with the daughter over the past few months to years, patient admits that she has not told her daughter the extent of her health issues. I told pt that daughter is in shock and upset 'but
she will be ok'
Family members were brought back
I called the daughter and offered to meet her in the hospital and walk her to the room as I recommended that she be with her mother. She was appreciative
Moving forward
Patient has made it very clear on multiple occasions with multiple providers including cardiology, nursing that she does not want aggressive measures
I encouraged family to spend time with the patient. Patient is denying any chest pain, any pain or shortness of breath at this time
She is also refusing meds
We discussed the process of comfort, morphine as needed, Ativan as needed
Will pursue this as able and clinically indicated
Patient is DNR and we will transition to comfort over the next few hours
Reviewed at length with patient, daughter, cousin/family friend, cardiology, primary service, nephrology
Reviewed with critical care nursing
TCCT 80 min
--- NOTE | 2024-06-04 16:50 | PTCARENOTE ---
Pt remains in SVT, BP 72/27. Pt oriented x3, but weak. Dr Black in to see, and asked pt if she would consider a cardiac shock. Pt understood that her bP is getting low. Pt chose not to be cardioverted. Pt's daughter, and family in with pt.
--- NOTE | 2024-06-04 17:02 | W.PN.UPDATE ---
Update Note
Progress Note Update
Called for rapid response. Rhythm is SVT, HR 150s. SBP 70s-80s. This is an unstable rhythm and threat to life.
Discussed with patient and family at bedside. Offered emergent DCCV. Patient declines any more procedures. She wishes to transition to comfort care.
Discussed with critical care MD and RN.
CCT 30 minutes.
--- NOTE | 2024-06-04 17:08 | W.PN.UPDATE ---
Update Note
Progress Note Update
2:40 pm
CONSUMER INSIGHT MANAGER called since patient was tachycardic at 160 with soft blood pressure at 96/59
Patient seen and examined at bedside, ordered 1 L bolus.
Patient remains tachycardic and blood pressure dropped to 70s systolic.
Discussed with family at bedside including the patient's daughter and cousin
Patient upgraded to the ICU-discussed with ICU attending.
[2024-06-04] MEDS: FLEXBUMIN IV (17:24)
[2024-06-04] MEDS: ProAmatine PO (17:25)
[2024-06-04] MEDS: ZOFRAN 4 MG IV ×2 (18:12→21:01)
--- NOTE | 2024-06-04 18:47 | W.PN.UPDATE ---
Update Note
Progress Note Update
Met with family and patient multiple times over the last hour
Patient asked for private conversation with myself, asking her family to leave
Patient then requesting medications to calm her nerves. I asked if it was okay I relayed this to the family and she said okay
I brought family back in and reviewed patient request
Will give 1 dose of Ativan 0.5 mg x 1
Ativan as needed thereafter, morphine as needed thereafter for respiratory distress/pain
Patient and family are aware that this may make her sleepy.
Comfort will be our priority, and we will respect patient wishes
Emotional support provided
All questions answered
Reviewed with nursing and critical care BAKER CHEF
--- NOTE | 2024-06-04 18:51 | PTCARENOTE ---
Pt with some sl nausea, zofran 4 mg iv given. Pt did not want her dinner. Mouth swabbed with ice water, which she appreciated. Pt's family remains at bedside. Pt given ativan now for feeling sl anxious as ordered by Dr Diallo. Pt denies any pain at
this time. HR rate remains 140s-150, BP labile.
[2024-06-04] MEDS: ATIVAN 0.5 MG IV (19:05)
--- NOTE | 2024-06-04 19:49 | W.PN.UPDATE ---
Update Note
Progress Note Update
Family updated by Dr. Diallo, patient has requested to move to comfort measures. PRN ativan and morphine ordered IV, comfort measure medications ordered and d/c other standing orders. RN updated and received new orders.
--- NOTE | 2024-06-04 20:00 | PTCARENOTE ---
Patient transitioned to comfort care, orders placed by ICU DESK TOP PUBLISHER. Family at bedside, provided emotional support and education about comfort care and POC at this time. Discontinued amio gtt and IVF, placed on 2L NC per requests of the family. Patient
presents comfortable at this time, no need for additional medication. Call olivo at bedside, instructed family on use, if needed. Care ongoing.
[2024-06-04] MEDS: MORPHINE SULFATE IV (21:01)
[2024-06-04] MEDS: LIDOCAINE 4% PATCH TOPICAL (22:48)
--- NOTE | 2024-06-05 | PTCARENOTE ---
Patient comfortable without need of PRN medications. Patient able to nod head or say yes and no to questions, very soft spoken. Denies pain and dyspnea, repositioned for comfort, wood in place. Care ongoing.
[2024-06-05] MEDS: NSS (PRESERVATIVE FREE) 0.25 ML IV ×2 (02:40→12:59)
[2024-06-05] MEDS: ATIVAN 0.5 MG IV ×3 (02:40→15:50)
--- NOTE | 2024-06-05 07:52 | W.PN.INTV ---
Today's Communication / Plan
Recommendations
Continue with comfort measures
Patient is comfortable appearing at this time
Transferred to medical surgical, private bed
We will sign off. Please call with questions
Assessment
-
73-year-old female with history of metastatic breast cancer, diagnosed 2011 followed by left lumpectomy radiation, recurrence in 2019 with axillary adenopathy, radiation 2019, no chemotherapy at patient request, now presents with months of
progressive lower extremity swelling, shortness of breath. Underwent left thoracentesis, likely left trapped lung. Patient found to have progressive renal insufficiency, requiring percutaneous nephrostomy tube due to suspected extrinsic
compression from adenopathy. Patient refused thoracentesis to facilitate percutaneous nephrostomy earlier today. Then developed tachycardia with hypotension, SVT. Received adenosine, amiodarone transferred to ICU for further management
Acute hypotension
Suspect multifactorial
Sepsis, cardiogenic with SVT/tachycardia
Acute renal insufficiency, progressive
Obstructive uropathy, secondary to retroperitoneal adenopathy suspected
Left hydropneumothorax, suspected trapped lung
Status post left thoracentesis 1.4 L drained
SVT, tachycardia
On amiodarone
Metastatic breast cancer diagnosed 2011
Patient refused chemotherapy in the past
Not keen on chemotherapy based on oncology correspondence
Left mastectomy/radiation 2011
Recurrence 2018 with axillary adenopathy, additional radiation therapy
Cachexia
History of hypertension
Plan/recommendations
At this time, patient appears comfortable
She denies pain
She is asking for water
Reviewed events overnight
At this time, comfort remains a priority
Watson catheter remains in place
See discussion prior correspondence regarding patient request for comfort measures
Patient transferred out of ICU. Will sign off. Please call with questions
Subjective Dataa
Subjective Data
Date of Service:
Date of Service: June 05, 2024
Subjective:
Patient is comfortable. She denies pain, shortness of breath. She is asking for water
Objective Data
Data Reviewed
Vital Signs / I&O / Oxygen:
Vital Signs
Temp Pulse Resp BP Pulse Ox
97.4 F 92 20 94/69 97
06/04/24 19:40 06/04/24 20:15 06/04/24 20:15 06/04/24 20:00 06/04/24 22:50
Intake and Output
06/04/24 06/05/24 06/06/24
06:59 06:59 06:59
Intake Total 790 / 790 1729.9 / 1729.9
Output Total 200 / 200 225 / 225
Balance 590 / 590 1504.9 / 1504.9
SaO2 97
Nasal Cannula flow liters per 2
minute
Physical Exam
General: Comfortable and Other (Cachectic, dry mucosa)
HEENT: Normocephalic and Anicteric
Cardiovascular: S1-S2, Regular Rhythm and Murmur (n)
Respiratory: Wheeze (n), Crackles (n), Rhonchi (n), Non-Labored Respirations and Other (Decreased breath sounds, poor inspiratory effort)
GI: Soft, Non Distended and Non Tender
Neurology: Awake, Alert (Asking for water) and No Motor Deficits (Moves all extremities)
Skin: Rash (n) and Bruising (n)
Labs/Micro/Reports
Lab Data
06/04/24 15:00
06/04/24 15:33
Microbiology
06/01/24 10:53 Pleural Fluid Body Fluid Culture - Final
No Growth After 72 Hours
06/01/24 10:53 Pleural Fluid Gram Stain - Final
05/31/24 22:49 Urine Urine Culture - Final
Escherichia coli
--- NOTE | 2024-06-05 11:49 | CM ---
CM following re: discharge planning.
Discussed in rounds, reviewed pt's chart,met with pt. per rounds meting, pt is comfort measure.
Hospice consult noted. Pt referred to hospice.
D/C plan: comfort care. fine grader following.
CM is available for emotional support.
--- NOTE | 2024-06-05 12:31 | HOSPNOTE ---
Referral received from , went in to speak with family, I introduced myself and stated I was one of the nurses from the hospice department asked family if they wanted to meet in the room or meet in a conference room. The daughter became irritated
and told me I should have never used the word hospice and does not wish to speak with me and told me to leave. I contacted the Attending and he will speak with the daughter. Per the notes and in speaking with the nurse the patient made the decision
for no further treatment, so using the word hospice did not upset the patient it only upset the daughter. I will sign off and the patient will move to [facility] on comfort unless something changes and I am needed please reach out.
[2024-06-05 13:26] VITALS: BP 93/58
--- NOTE | 2024-06-05 13:45 | W.PN.HOSP.TC ---
Today's Communication/Plan
-
Start CONDUIT BENDER
Assessment / Plan
Assessment / Plan
Impression:
Patient is 70 years old with history of breast cancer status post lumpectomy and radiation came to the ER with shortness of breath, bilateral lower extremity edema for last 3 weeks found to have large pleural effusion status post thoracentesis
cardiology consulted, echocardiogram shows:
Very limited study.
Left ventricular ejection fraction is 60-65%, by visual assessment.
Normal right ventricular size and function.
Small to moderate anterior pericardial effusion without evidence of hemodynamic
compromise.
Repeat chest x-ray today done shows
1. LARGE LEFT HYDROPNEUMOTHORAX involving 50% of the lung volume.
2. Severe left lower lobe airspace consolidation.
3. Moderate-sized right pleural effusion.
4. MULTIFOCAL BLASTIC OSSEOUS METASTATIC DISEASE.
5. Severe pectus excavatum deformity.
CT abdomen was done confirm hydronephrosis, urology consult
-Function continued worsening, started albumin and midodrine.
IR consult for right-sided thoracentesis
06/05
Patient upgraded to the ICU for persistent hypotension and SVTs.
Cardiology discussed and offered emergent cardioversion but patient refused.
Patient wishes to transition to comfort measures only.
Patient currently DNI/DNR will be downgraded from the ICU
Assessment/plan
Comfort measures only
Patient wishes to transition to comfort care and be DNI/DNR.
Discussed multiple occasion with the daughter at bedside.
Hospice consulted but patient's daughter refused to speak to hospice.
She does not want mentions about hospice in front of the patient
I had a long meeting with the patient dated 06/05/2024 explaining comfort measures.
Will start Ativan as needed and morphine as needed, will hold further blood draw.
Patient's daughter willing to talk to hospice but not today.
Patient downgraded from the ICU to private room.
Acute CHF Exacerbation:
Acute diastolic CHF, no history of congestive heart failure
Patient presented with shortness of breath and lower extremity
BNP level is elevated at 851
Troponin level is 0.027
Was given IV Lasix 40 mg daily, caution with hypotension
Daily weight.
Strict I's and O's.
Consulted cardiology.
Continue court recording monitor
06/02
echocardiogram shows:
Very limited study.
Left ventricular ejection fraction is 60-65%, by visual assessment.
Normal right ventricular size and function.
Small to moderate anterior pericardial effusion without evidence of hemodynamic
compromise.
Bilateral lower extremity ultrasound shows no DVT.
Hold Lasix for now with worsening creatinine.
06/04
Albumin and midodrine started
06/05
Start comfort measures only
Bilateral pleural effusion
CT chest:
There is a large left pleural effusion with associated collapse of the left lower lobe and partial collapse of the left upper lobe. There is a small/moderate right-sided pleural effusion with adjacent compressive atelectasis.
Scattered small sclerotic foci involving the thoracic spine and sternum, nonspecific although the setting of malignancy metastasis are possible.
Diffuse anasarca.
Fractures of the anterior left second, third and fourth ribs which appear subacute
Status post left-sided thoracentesis with removal of 1400 cc.
Fluid studies pending--- history of breast cancer rule out malignant pleural effusion
Small left pneumothorax, follow-up chest x-ray
06/02
Repeat chest x-ray today done shows
1. LARGE LEFT HYDROPNEUMOTHORAX involving 50% of the lung volume.
2. Severe left lower lobe airspace consolidation.
3. Moderate-sized right pleural effusion.
4. MULTIFOCAL BLASTIC OSSEOUS METASTATIC DISEASE.
5. Severe pectus excavatum deformity.
Discussed with daughter at bedside, will get oncology consult.
06/04
Right-sided thoracentesis ordered
06/05
Refused further thoracentesis and wishes to be DNI/DNR and start comfort measures
Concern for metastatic disease
CT chest, x-ray chest shows concern for metastatic disease.
Pending pleural fluid cytology
Oncology consulted
Hematemesis
Patient had large brownish emesis.
Seen by GI.
Continue pantoprazole IV
Hemoglobin stayed stable
Postprocedure hypotension
Continue to monitor
Consider midodrine-cannot give IV fluid
Consider midodrine
06/05
CONDUIT BENDER
Purple discoloration of bilateral
Patient stated that this been there for last 2 days.
Palpable pulses bilaterally.
Continue to monitor
arterial studies came back shows no focal stenosis
Acute renal failure
Creatinine slightly improved
hold lisinopril for now
Caution with diuresing
consult nephrology
06/02
Hold Lasix
06/03
CT abdomen shows moderate hydronephrosis
Urology consulted
06/04
Worsening creatinine.
Discussed with IR and urology.
Right nephrostomy tube was suggested but patient is not stable enough for us to proceed
06/05
Since patient currently comfort measures only, no further testing
Right hydronephrosis
Discussed with urology
Recommending IR consult for right nephrostomy tube, patient is not stable enough for us to proceed
06/05
Hold any invasive intervention as per the patient wishes and start CONDUIT BENDER
Weight loss
- malignancy suspected, depression suspected per history from daughter
- Added ensure
Skin findings - hard skin nodules on the neck bilaterally. Non tender. No discharges. Has been present for a long time per patient
- consider outpatient skin biopsy
CODE STATUS: Full code
DVT prophylaxis: Heparin
Diet: Cardiac diet
Family communication: Discussed with daughter Margarita at bedside
Total time spent on today's encounter was 75 minutes which included time spent in counseling the patient/family regarding diagnosis and treatment plan as listed above, goals of care, and symptom management. Case was discussed with nursing staff,
specialists, and care coordinators/case management. All labs and imaging personally reviewed by me. Remainder the time spent in detailed review of previous records, lab data, imaging, and other medical provider documentation.
Anticipated Discharge: > 48 hours
Subjective/Interval History
-
Date of Service: June 05, 2024
Patient upgraded yesterday to ICU, currently on comfort measures only, patient discussed with ICU attending yesterday and patient is DNI/DNR.
Long discussion with the daughter today regarding comfort measures only, will start comfort measures only.
Objective Data
-
Vital Signs:
Vital Signs
Temp Pulse Resp BP Pulse Ox
97.8 F 96 14 93/58 96
06/05/24 13:26 06/05/24 13:26 06/05/24 13:26 06/05/24 13:26 06/05/24 13:26
I&O
06/04/24 06/05/24 06/06/24
06:59 06:59 06:59
Intake Total 790 / 790 1729.9 / 1729.9
Output Total 200 / 200 225 / 225
Balance 590 / 590 1504.9 / 1504.9
Physical Exam
-
General: Respiratory Distress, Appears in Distress and Appears Chronically Ill
HEENT: Normocephalic, Atraumatic, Moist Mucous Membranes, No Ptosis, PERRLA and Nose Appears Normal
Respiratory: Rales, Rhonchi, Crackles and Accessory Resp Muscle Use
Cardiac: Regular Rhythm, S1/S2 and Tachycardic
Breast: Deferred by me
GI: Soft, Nontender, Nondistended and Normal Bowel Sounds
Genito-urinary: No Costovertebral Tender
Musculoskeletal: Edema, Right Lower Extrem and Edema, Left Lower Extrem
Skin: Other (Bilateral hands purplish discoloration)
Neuro: Awake, Alert, Oriented, AO x 3 and No Motor Deficits
Psych: Depressed
Data Reviewed
-
Diagnostic Radiology: Image personally visualized and interpreted and Report Reviewed by me
CT Scan: Image personally visualized and interpreted and Report Reviewed by me
Ultrasound: Image personally visualized and interpreted and Report Reviewed by me
MRI: Image personally visualized and interpreted and Report Reviewed by me
Medical Tests (Nuc Med, Echo etc): Image personally visualized and interpreted and Report Reviewed by me
Labs: Labs Reviewed by me
Old Records: Reviewed
[2024-06-05] MEDS: NSS (PRESERVATIVE FREE) 1 ML IV (15:50)
[2024-06-05] MEDS: MORPHINE SULFATE 1 MG IV (18:28)
[2024-06-05] MEDS: LIDOCAINE 4% PATCH TOPICAL (22:01)
[2024-06-05 23:36] VITALS: BP 102/71
[2024-06-06] MEDS: ATIVAN 0.5 MG IV (01:38)
[2024-06-06] MEDS: NSS (PRESERVATIVE FREE) 0.25 ML IV (01:39)
[2024-06-06] MEDS: FLUSH (NSS) 2 FLUSH IV (01:39)
[2024-06-06 08:01] VITALS: BP 92/59
--- NOTE | 2024-06-06 10:11 | W.PN.HOSP.TC ---
Today's Communication/Plan
-
OUTREACH REPRESENTATIVE
Assessment / Plan
Assessment / Plan
Impression:
Patient is 70 years old with history of breast cancer status post lumpectomy and radiation came to the ER with shortness of breath, bilateral lower extremity edema for last 3 weeks found to have large pleural effusion status post thoracentesis
cardiology consulted, echocardiogram shows:
Very limited study.
Left ventricular ejection fraction is 60-65%, by visual assessment.
Normal right ventricular size and function.
Small to moderate anterior pericardial effusion without evidence of hemodynamic
compromise.
Repeat chest x-ray today done shows
1. LARGE LEFT HYDROPNEUMOTHORAX involving 50% of the lung volume.
2. Severe left lower lobe airspace consolidation.
3. Moderate-sized right pleural effusion.
4. MULTIFOCAL BLASTIC OSSEOUS METASTATIC DISEASE.
5. Severe pectus excavatum deformity.
CT abdomen was done confirm hydronephrosis, urology consult
-Function continued worsening, started albumin and midodrine.
IR consult for right-sided thoracentesis
06/05
Patient upgraded to the ICU for persistent hypotension and SVTs.
Cardiology discussed and offered emergent cardioversion but patient refused.
Patient wishes to transition to comfort measures only.
Patient currently DNI/DNR will be downgraded from the ICU
06/06
Continue comfort measures
Assessment/plan
Comfort measures only
Patient wishes to transition to comfort care and be DNI/DNR.
Discussed multiple occasion with the daughter at bedside.
Hospice consulted but patient's daughter refused to speak to hospice.
She does not want mentions about hospice in front of the patient
I had a long meeting with the patient dated 06/05/2024 explaining comfort measures.
Will start Ativan as needed and morphine as needed, will hold further blood draw.
Patient's daughter willing to talk to hospice but not today.
Patient downgraded from the ICU to private room.
06/06
Continue OUTREACH REPRESENTATIVE
Acute CHF Exacerbation:
Acute diastolic CHF, no history of congestive heart failure
Patient presented with shortness of breath and lower extremity
BNP level is elevated at 851
Troponin level is 0.027
Was given IV Lasix 40 mg daily, caution with hypotension
Daily weight.
Strict I's and O's.
Consulted cardiology.
Continue laboratory monitor
06/02
echocardiogram shows:
Very limited study.
Left ventricular ejection fraction is 60-65%, by visual assessment.
Normal right ventricular size and function.
Small to moderate anterior pericardial effusion without evidence of hemodynamic
compromise.
Bilateral lower extremity ultrasound shows no DVT.
Hold Lasix for now with worsening creatinine.
06/04
Albumin and midodrine started
06/05
Start comfort measures only
Bilateral pleural effusion
CT chest:
There is a large left pleural effusion with associated collapse of the left lower lobe and partial collapse of the left upper lobe. There is a small/moderate right-sided pleural effusion with adjacent compressive atelectasis.
Scattered small sclerotic foci involving the thoracic spine and sternum, nonspecific although the setting of malignancy metastasis are possible.
Diffuse anasarca.
Fractures of the anterior left second, third and fourth ribs which appear subacute
Status post left-sided thoracentesis with removal of 1400 cc.
Fluid studies pending--- history of breast cancer rule out malignant pleural effusion
Small left pneumothorax, follow-up chest x-ray
06/02
Repeat chest x-ray today done shows
1. LARGE LEFT HYDROPNEUMOTHORAX involving 50% of the lung volume.
2. Severe left lower lobe airspace consolidation.
3. Moderate-sized right pleural effusion.
4. MULTIFOCAL BLASTIC OSSEOUS METASTATIC DISEASE.
5. Severe pectus excavatum deformity.
Discussed with daughter at bedside, will get oncology consult.
06/04
Right-sided thoracentesis ordered
06/05
Refused further thoracentesis and wishes to be DNI/DNR and start comfort measures
Concern for metastatic disease
CT chest, x-ray chest shows concern for metastatic disease.
Pending pleural fluid cytology
Oncology consulted
Hematemesis
Patient had large brownish emesis.
Seen by GI.
Continue pantoprazole IV
Hemoglobin stayed stable
Postprocedure hypotension
Continue to monitor
Consider midodrine-cannot give IV fluid
Consider midodrine
06/05
OUTREACH REPRESENTATIVE
Purple discoloration of bilateral
Patient stated that this been there for last 2 days.
Palpable pulses bilaterally.
Continue to monitor
arterial studies came back shows no focal stenosis
Acute renal failure
Creatinine slightly improved
hold lisinopril for now
Caution with diuresing
consult nephrology
06/02
Hold Lasix
06/03
CT abdomen shows moderate hydronephrosis
Urology consulted
06/04
Worsening creatinine.
Discussed with IR and urology.
Right nephrostomy tube was suggested but patient is not stable enough for us to proceed
06/05
Since patient currently comfort measures only, no further testing
Right hydronephrosis
Discussed with urology
Recommending IR consult for right nephrostomy tube, patient is not stable enough for us to proceed
06/05
Hold any invasive intervention as per the patient wishes and start OUTREACH REPRESENTATIVE
Weight loss
- malignancy suspected, depression suspected per history from daughter
- Added ensure
Skin findings - hard skin nodules on the neck bilaterally. Non tender. No discharges. Has been present for a long time per patient
- consider outpatient skin biopsy
CODE STATUS: Full code
DVT prophylaxis: Heparin
Diet: Cardiac diet
Family communication: Discussed with daughter Margarita at bedside
Total time spent on today's encounter was 65 minutes which included time spent in counseling the patient/family regarding diagnosis and treatment plan as listed above, goals of care, and symptom management. Case was discussed with nursing staff,
specialists, and care coordinators/case management. All labs and imaging personally reviewed by me. Remainder the time spent in detailed review of previous records, lab data, imaging, and other medical provider documentation.
Anticipated Discharge: > 48 hours
Subjective/Interval History
-
Date of Service: June 06, 2024
Patient started on comfort measures only, no overnight events.
Objective Data
-
Vital Signs:
Vital Signs
Temp Pulse Resp BP Pulse Ox
98.2 F 106 14 92/59 92
06/06/24 08:01 06/06/24 08:01 06/06/24 08:01 06/06/24 08:01 06/06/24 08:01
I&O
06/05/24 06/06/24 06/07/24
06:59 06:59 06:59
Intake Total 1729.9 / 1729.9
Output Total 225 / 225 200 / 200
Balance 1504.9 / 1504.9 -200 / -200
Physical Exam
-
General: Respiratory Distress, Appears in Distress and Appears Chronically Ill
HEENT: Normocephalic, Atraumatic, Moist Mucous Membranes, No Ptosis, PERRLA and Nose Appears Normal
Respiratory: Rales, Rhonchi, Crackles and Accessory Resp Muscle Use
Cardiac: Regular Rhythm, S1/S2 and Tachycardic
Breast: Deferred by me
GI: Soft, Nontender, Nondistended and Normal Bowel Sounds
Genito-urinary: No Costovertebral Tender
Musculoskeletal: Edema, Right Lower Extrem and Edema, Left Lower Extrem
Skin: Other (Bilateral hands purplish discoloration)
Neuro: Awake and AO x 3
Psych: Calm
Data Reviewed
-
Diagnostic Radiology: Image personally visualized and interpreted and Report Reviewed by me
CT Scan: Image personally visualized and interpreted and Report Reviewed by me
Ultrasound: Image personally visualized and interpreted and Report Reviewed by me
MRI: Image personally visualized and interpreted and Report Reviewed by me
Medical Tests (Nuc Med, Echo etc): Image personally visualized and interpreted and Report Reviewed by me
Labs: Labs Reviewed by me
Old Records: Reviewed
[2024-06-06] MEDS: MORPHINE SULFATE 1 MG IV (10:24)
[2024-06-06] MEDS: MORPHINE SULFATE 2 MG IV (16:46)
[2024-06-06 20:02] VITALS: BP 103/66
[2024-06-06] MEDS: LIDOCAINE 4% PATCH TOPICAL (22:46)
[2024-06-07] MEDS: MORPHINE SULFATE 1 MG IV (03:44)
[2024-06-07] MEDS: ATIVAN 0.5 MG IV (03:47)
[2024-06-07] MEDS: FLUSH (NSS) 3 FLUSH IV (03:47)
[2024-06-07] MEDS: NSS (PRESERVATIVE FREE) 0.25 ML IV (03:48)
[2024-06-07 07:27] VITALS: BP 88/60
[2024-06-07] MEDS: MORPHINE SULFATE 2 MG IV ×4 (09:00→21:44)
--- NOTE | 2024-06-07 10:39 | W.PN.HOSP.TC ---
Today's Communication/Plan
-
Continue comfort measures only
Assessment / Plan
Assessment / Plan
Impression:
Patient is 70 years old with history of breast cancer status post lumpectomy and radiation came to the ER with shortness of breath, bilateral lower extremity edema for last 3 weeks found to have large pleural effusion status post thoracentesis
cardiology consulted, echocardiogram shows:
Very limited study.
Left ventricular ejection fraction is 60-65%, by visual assessment.
Normal right ventricular size and function.
Small to moderate anterior pericardial effusion without evidence of hemodynamic
compromise.
Repeat chest x-ray today done shows
1. LARGE LEFT HYDROPNEUMOTHORAX involving 50% of the lung volume.
2. Severe left lower lobe airspace consolidation.
3. Moderate-sized right pleural effusion.
4. MULTIFOCAL BLASTIC OSSEOUS METASTATIC DISEASE.
5. Severe pectus excavatum deformity.
CT abdomen was done confirm hydronephrosis, urology consult
-Function continued worsening, started albumin and midodrine.
IR consult for right-sided thoracentesis
06/05
Patient upgraded to the ICU for persistent hypotension and SVTs.
Cardiology discussed and offered emergent cardioversion but patient refused.
Patient wishes to transition to comfort measures only.
Patient currently DNI/DNR will be downgraded from the ICU
06/06
Continue comfort measures
06/07
Continue comfort measures only.
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
Assessment/plan
Comfort measures only
Patient wishes to transition to comfort care and be DNI/DNR.
Discussed multiple occasion with the daughter at bedside.
Hospice consulted but patient's daughter refused to speak to hospice.
She does not want mentions about hospice in front of the patient
I had a long meeting with the patient dated 06/05/2024 explaining comfort measures.
Will start Ativan as needed and morphine as needed, will hold further blood draw.
Patient's daughter willing to talk to hospice but not today.
Patient downgraded from the ICU to private room.
06/06
Continue NUT PACKER
Acute CHF Exacerbation:
Acute diastolic CHF, no history of congestive heart failure
Patient presented with shortness of breath and lower extremity
BNP level is elevated at 851
Troponin level is 0.027
Was given IV Lasix 40 mg daily, caution with hypotension
Daily weight.
Strict I's and O's.
Consulted cardiology.
Continue nurse monitoring
06/02
echocardiogram shows:
Very limited study.
Left ventricular ejection fraction is 60-65%, by visual assessment.
Normal right ventricular size and function.
Small to moderate anterior pericardial effusion without evidence of hemodynamic
compromise.
Bilateral lower extremity ultrasound shows no DVT.
Hold Lasix for now with worsening creatinine.
06/04
Albumin and midodrine started
06/05
Start comfort measures only
Bilateral pleural effusion
CT chest:
There is a large left pleural effusion with associated collapse of the left lower lobe and partial collapse of the left upper lobe. There is a small/moderate right-sided pleural effusion with adjacent compressive atelectasis.
Scattered small sclerotic foci involving the thoracic spine and sternum, nonspecific although the setting of malignancy metastasis are possible.
Diffuse anasarca.
Fractures of the anterior left second, third and fourth ribs which appear subacute
Status post left-sided thoracentesis with removal of 1400 cc.
Fluid studies pending--- history of breast cancer rule out malignant pleural effusion
Small left pneumothorax, follow-up chest x-ray
06/02
Repeat chest x-ray today done shows
1. LARGE LEFT HYDROPNEUMOTHORAX involving 50% of the lung volume.
2. Severe left lower lobe airspace consolidation.
3. Moderate-sized right pleural effusion.
4. MULTIFOCAL BLASTIC OSSEOUS METASTATIC DISEASE.
5. Severe pectus excavatum deformity.
Discussed with daughter at bedside, will get oncology consult.
06/04
Right-sided thoracentesis ordered
06/05
Refused further thoracentesis and wishes to be DNI/DNR and start comfort measures
metastatic disease possible from brast cancer
CT chest, x-ray chest shows concern for metastatic disease.
Pending pleural fluid cytology
Oncology consulted
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
Hematemesis
Patient had large brownish emesis.
Seen by GI.
Continue pantoprazole IV
Hemoglobin stayed stable
Postprocedure hypotension
Continue to monitor
Consider midodrine-cannot give IV fluid
Consider midodrine
06/05
NUT PACKER
Purple discoloration of bilateral
Patient stated that this been there for last 2 days.
Palpable pulses bilaterally.
Continue to monitor
arterial studies came back shows no focal stenosis
Acute renal failure
Creatinine slightly improved
hold lisinopril for now
Caution with diuresing
consult nephrology
06/02
Hold Lasix
06/03
CT abdomen shows moderate hydronephrosis
Urology consulted
06/04
Worsening creatinine.
Discussed with IR and urology.
Right nephrostomy tube was suggested but patient is not stable enough for us to proceed
06/05
Since patient currently comfort measures only, no further testing
Right hydronephrosis
Discussed with urology
Recommending IR consult for right nephrostomy tube, patient is not stable enough for us to proceed
06/05
Hold any invasive intervention as per the patient wishes and start NUT PACKER
Weight loss
- malignancy suspected, depression suspected per history from daughter
- Added ensure
Skin findings - hard skin nodules on the neck bilaterally. Non tender. No discharges. Has been present for a long time per patient
- consider outpatient skin biopsy
CODE STATUS: Full code
DVT prophylaxis: Heparin
Diet: Cardiac diet
Family communication: Discussed with daughter Margarita at bedside
Total time spent on today's encounter was 65 minutes which included time spent in counseling the patient/family regarding diagnosis and treatment plan as listed above, goals of care, and symptom management. Case was discussed with nursing staff,
specialists, and care coordinators/case management. All labs and imaging personally reviewed by me. Remainder the time spent in detailed review of previous records, lab data, imaging, and other medical provider documentation.
Anticipated Discharge: > 48 hours
Subjective/Interval History
-
Date of Service: June 07, 2024
Currently comfortable, switch morphine and Ativan to scheduled and addition of as needed
Objective Data
-
Vital Signs:
Vital Signs
Temp Pulse Resp BP Pulse Ox
97.7 F 80 16 88/60 96
06/07/24 07:27 06/07/24 07:27 06/07/24 07:27 06/07/24 07:27 06/07/24 07:27
I&O
06/06/24 06/07/24 06/08/24
06:59 06:59 06:59
Intake Total 360 / 360
Output Total 200 / 200 125 / 125
Balance -200 / -200 235 / 235
Physical Exam
-
General: Respiratory Distress, Appears in Distress and Appears Chronically Ill
HEENT: Normocephalic, Atraumatic, Moist Mucous Membranes, No Ptosis, PERRLA and Nose Appears Normal
Respiratory: Rales, Rhonchi, Crackles and Accessory Resp Muscle Use
Cardiac: Regular Rhythm, S1/S2 and Tachycardic
Breast: Deferred by me
GI: Soft, Nontender, Nondistended and Normal Bowel Sounds
Genito-urinary: No Costovertebral Tender
Musculoskeletal: Edema, Right Lower Extrem and Edema, Left Lower Extrem
Skin: Other (Bilateral hands purplish discoloration)
Neuro: Awake and AO x 3
Psych: Calm
Data Reviewed
-
Diagnostic Radiology: Image personally visualized and interpreted and Report Reviewed by me
CT Scan: Image personally visualized and interpreted and Report Reviewed by me
Ultrasound: Image personally visualized and interpreted and Report Reviewed by me
MRI: Image personally visualized and interpreted and Report Reviewed by me
Medical Tests (Nuc Med, Echo etc): Image personally visualized and interpreted and Report Reviewed by me
Labs: Labs Reviewed by me
Old Records: Reviewed
[2024-06-07] MEDS: ATIVAN 1 MG IV ×4 (11:45→23:36)
[2024-06-07] MEDS: NSS (PRESERVATIVE FREE) 0.5 ML IV ×4 (11:45→23:35)
--- NOTE | 2024-06-07 12:29 | PTOTSP ---
Reviewed chart and noted pt is now on comfort measures. PT will sign off now.
--- NOTE | 2024-06-07 12:57 | CHAP ---
It was an effort for Harriet to speak. She requested a smaller cup for drinking her water, and also wanted juice and lemonade. After checking with nurse, I assisted Harriet with these needs. Harriet shared thoughts and feelings, and welcomed prayer.
Emotional and spiritual support provided.
[2024-06-07 20:16] VITALS: BP 87/53
[2024-06-07] MEDS: LIDOCAINE 4% PATCH 1 PATCH TOPICAL (23:01)
[2024-06-08] MEDS: MORPHINE SULFATE 2 MG IV ×5 (01:10→18:20)
[2024-06-08] MEDS: NSS (PRESERVATIVE FREE) 0.5 ML IV (04:22)
[2024-06-08] MEDS: ATIVAN 1 MG IV (04:22)
[2024-06-08 07:35] VITALS: BP 77/45
[2024-06-08] MEDS: ATIVAN IV ×2 (07:57→11:35)
[2024-06-08] MEDS: NSS (PRESERVATIVE FREE) IV ×2 (07:57→11:35)
--- NOTE | 2024-06-08 09:17 | CM ---
Reviewed the chart notes. CM continues to be available to patient/family.
Plan: Comfort care.
--- NOTE | 2024-06-08 12:19 | W.PN.HOSP.TC ---
Today's Communication/Plan
-
on comfort measures
Assessment / Plan
Assessment / Plan
Impression:
Patient is 70 years old with history of breast cancer status post lumpectomy and radiation came to the ER with shortness of breath, bilateral lower extremity edema for last 3 weeks found to have large pleural effusion status post thoracentesis
cardiology consulted, echocardiogram shows:
Assessment/plan
Metastatic disease possible from Breast cancer
CT chest, x-ray chest shows concern for metastatic disease.
Pending pleural fluid cytology
Oncology consulted
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
Acute HFpEF
Acute diastolic CHF, no history of congestive heart failure
Patient presented with shortness of breath and lower extremity
BNP level is elevated at 851
Troponin level is 0.027
Was given IV Lasix 40 mg daily, caution with hypotension
Daily weight.
Strict I's and O's.
Consulted cardiology.
Continue cardiac specialist
eechocardiogram shows:
Very limited study.
Left ventricular ejection fraction is 60-65%, by visual assessment.
Normal right ventricular size and function.
Small to moderate anterior pericardial effusion without evidence of hemodynamic
compromise.
Bilateral lower extremity ultrasound shows no DVT.
Albumin and midodrine started
Dr. Colby DISCUSSED WITH PATIENT AND FAMILY -Patient was subsequently started on comfort measures only
Bilateral pleural effusion
CT chest:
There is a large left pleural effusion with associated collapse of the left lower lobe and partial collapse of the left upper lobe. There is a small/moderate right-sided pleural effusion with adjacent compressive atelectasis.
Scattered small sclerotic foci involving the thoracic spine and sternum, nonspecific although the setting of malignancy metastasis are possible.
Diffuse anasarca.
Fractures of the anterior left second, third and fourth ribs which appear subacute
Status post left-sided thoracentesis with removal of 1400 cc.
Fluid studies pending--- history of breast cancer rule out malignant pleural effusion
Small left pneumothorax, follow-up chest x-ray
Hematemesis
Patient had large brownish emesis.
Seen by GI.
Continue pantoprazole IV
Hemoglobin stayed stable
Postprocedure hypotension
Continue to monitor
Consider midodrine-cannot give IV fluid
Consider midodrine
Purple discoloration of bilateral
Patient stated that this been there for last 2 days.
Palpable pulses bilaterally.
Continue to monitor
arterial studies came back shows no focal stenosis
Acute renal failure
Creatinine slightly improved
hold lisinopril for now
Caution with diuresing
consult nephrology
Hold Lasix
CT abdomen shows moderate hydronephrosis
Urology consulted
Worsening creatinine.
Discussed with IR and urology.
Right nephrostomy tube was suggested but patient is not stable enough for us to proceed
Since patient currently comfort measures only, no further testing
Right hydronephrosis
Discussed with urology
Recommending IR consult for right nephrostomy tube, patient is not stable enough for us to proceed
Weight loss
- malignancy suspected, depression suspected per history from daughter
- Added ensure
Skin findings - hard skin nodules on the neck bilaterally. Non tender. No discharges. Has been present for a long time per patient
- consider outpatient skin biopsy
DNR. comfort measures
Dr. Colby DISCUSSED WITH PATIENT AND FAMILY -Patient was subsequently started on comfort measures only. Currently on comfort measures w/morphine/ativan. Seems imminent.
No family members present at bedside during rounds.
Anticipated Discharge: > 48 hours
Subjective/Interval History
-
Date of Service: June 08, 2024
resting in bed comfortably
sleeping
dry mucous membranes
on comfort measures
Objective Data
-
Vital Signs:
Vital Signs
Temp Pulse Resp BP Pulse Ox
97.9 F 115 18 77/45 92
06/08/24 07:35 06/08/24 07:35 06/08/24 07:35 06/08/24 07:35 06/08/24 07:35
I&O
06/07/24 06/08/24 06/09/24
06:59 06:59 06:59
Intake Total 360 / 360 240 / 240
Output Total 125 / 125 55 / 55
Balance 235 / 235 185 / 185
[2024-06-08] MEDS: MORPHINE SULFATE IV (13:32)
--- NOTE | 2024-06-08 13:39 | CHAP ---
Addendum entered by Renee Morocho 06/08/24 15:02:
Fr. Cronin anticipated coming around 3pm
Original Note:
Emotional and spiritual support provided. Prayers shared. [employer] request relayed to Fr. Cronin, [employer] today. Awaiting call back.
--- NOTE | 2024-06-08 18:32 | PTCARENOTE ---
Patient with no heart tones upon auscultation. made aware. Cousin at bedside. Daughter coming in.
--- NOTE | 2024-06-08 18:43 | W.PN.DEATH ---
Pronouncement of
-
Called to see patient to pronounce.
No spontaneous heart tones or respirations noted.
Patient not responsive to verbal stimuli.
Patient is pronounced .
Time of : 18:30
Date of : 06/08/24
Cause of : Metastatic breast cancer, acute heart failure exacerbation, pleural effusion
Family Notified: Yes (Cousin at bedside)
--- NOTE | 2024-06-08 18:48 | W.DCSUMMARY ---
Discharge Summary
Discharge Data
Date of Admission: 05/31/24
Date of Discharge: 06/08/24
-
Pending Results: No
Hospital Course
73-year female past medical history of breast cancer status post lumpectomy radiation, presented with shortness of breath, lower extremity edema. Patient was found to have large pleural effusion. Cardiology, nephrology, urology, critical care,
oncology was consulted throughout hospitalization. Patient received gentle IV diuresis leading to hypotension. Patient underwent echocardiogram with EF of 60 to 65%. Patient had worsening creatinine and nephrology was also following patient's.
Patient underwent CT of the chest which showed large left pleural effusion with associated collapse of the lobe. Patient underwent thoracentesis 1450cc evacuated. Patient further course complicated with coffee-ground emesis and gastroenterology
was consulted. Patient was started on PPI. GI recommend to hold off on procedure as patient with significantly high risk of complications from sedation anesthesia with recent pneumothorax status post pleural effusion and tenuous respiratory
status. Patient underwent CT abdomen pelvis which showed patient had severe right-sided hydronephrosis with retroperitoneal lymphadenopathy. Urology recommended for patient to undergo a right PCN placement due to concern for obstructive uropathy
secondary to malignant extrinsic compression from retroperitoneal lymphadenopathy. Patient had a rapid response where patient went into SVTs with heart rate in the 150s. During the process cardiology offered emergent DCCV however patient refused
and stated to transition to comfort measures. Patient declining to further undergo any procedures. Patient stated to multiple physicians that she does not want to go any aggressive medical treatment and management and would like to to be
transition to comfort measures. Patient was transferred out of ICU into medical floor and was maintained on comfort measures. Patient was comfortable on comfort measures and on 06/08/2024 at 1830.
Discharge Plan
-
Patient Disposition:
Date/Time
Date/Time: 06/08/24 18:30
Discharge Date and Time
Print Language: PORTUGUESE
== END 2024-06-08 18:30 | disposition expired | DRG 597 ==
LOC: 2 NORTH 20:24
PROVIDERS: Emergency Medicine; General Practice; Radiology Vascular & Interventional Radiology; Specialist; ADMITTING PHYSICIAN Internal Medicine; ATTENDING PHYSICIAN Hospitalist; CONSULT PHYSICIAN Internal Medicine; CONSULT PHYSICIAN Internal Medicine Critical Care Medicine; EMERGENCY PHYSICIAN Emergency Medicine; FAMILY PHYSICIAN Family Medicine; OTHER PHYSICIAN Internal Medicine; OTHER PHYSICIAN Internal Medicine Cardiovascular Disease; OTHER PHYSICIAN Internal Medicine Hematology & Oncology
PROC: 0W993ZZ Drainage of Right Pleural Cavity, Percutaneous Approach (ICD-10-PCS; 2024-06-01)
DX: C50.912 Malignant neoplasm of unspecified site of left female breast (principal); A41.9 Sepsis, unspecified organism; E43 Unspecified severe protein-calorie malnutrition; I50.31 Acute diastolic (congestive) heart failure; C79.51 Secondary malignant neoplasm of bone; N17.9 Acute kidney failure, unspecified; E87.1 Hypo-osmolality and hyponatremia; J98.11 Atelectasis; J93.9 Pneumothorax, unspecified; K92.0 Hematemesis; R18.8 Other ascites; J94.8 Other specified pleural conditions; N13.6 Pyonephrosis; I31.39 Other pericardial effusion (noninflammatory); E87.20 Acidosis, unspecified; J91.0 Malignant pleural effusion; R64 Cachexia; I47.10 Supraventricular tachycardia, unspecified; I11.0 Hypertensive heart disease with heart failure; R06.02 Shortness of breath; Z51.5 Encounter for palliative care; R13.10 Dysphagia, unspecified; R63.0 Anorexia; R14.0 Abdominal distension (gaseous); G89.29 Other chronic pain; M54.9 Dorsalgia, unspecified; K21.9 Gastro-esophageal reflux disease without esophagitis; F10.90 Alcohol use, unspecified, uncomplicated; K59.00 Constipation, unspecified; F32.A Depression, unspecified; R32 Unspecified urinary incontinence; B96.20 Unspecified Escherichia coli [E. coli] as the cause of diseases classified elsewhere; R62.7 Adult failure to thrive; L89.152 Pressure ulcer of sacral region, stage 2; R59.0 Localized enlarged lymph nodes; I95.9 Hypotension, unspecified; I95.81 Postprocedural hypotension; E87.5 Hyperkalemia; K27.9 Peptic ulcer, site unspecified, unspecified as acute or chronic, without hemorrhage or perforation; Z53.20 Procedure and treatment not carried out because of patient's decision for unspecified reasons; Z66 Do not resuscitate; Q67.6 Pectus excavatum; Z92.3 Personal history of irradiation; Z88.0 Allergy status to penicillin; Z91.02 Food additives allergy status; Z17.0 Estrogen receptor positive status [ER+]; Z91.81 History of falling; Z79.1 Long term (current) use of non-steroidal anti-inflammatories (NSAID); Z68.22 Body mass index [BMI] 22.0-22.9, adult
CPT/HCPCS: 88305; 93308; 32555; 71045; 71046; 71250; 74176; 76775; 80048; 80053; 80061; 81003; 81015; 82248; 82570; 82945; 82962; 83605; 83615; 83735; 83880; 83986; 84155; 84156; 84157; 84300; 84443; 84484; 85025; 85027; 85379; 85610; 87015; 87070; 87077; 87086; 87186; 87205; 88112; 88341; 88342; 88360; 89051; 93005; 93306; 93321; 93325; 93923; 93930; 93970; 97163; 97167; 97535; 99285; J0153; P9047